=== PATIENT | male | born 1955 | race Caucasian/White ===

== ENCOUNTER 2020-01-30 10:19 | Inpatient (IN) | payer BC ==
--- NOTE | 2020-01-30 10:46 | ER Document Report ---
ED Medical Screen (RME) - General Stated Complaint: FEVER,WEAKNESS Time Seen by Provider: 01/30/20 10:37 Notes: Patient presents complaining of shortness of breath for the past 2 days with cough. Patient was diagnosed with Covid 2 days ago. Patient denies any fever, nausea vomiting or diarrhea. Patient denies any chronic underlying medical problems. I have greeted and performed a rapid initial assessment of this patient. A comprehensive ED assessment and evaluation of the patient, analysis of test results and completion of the medical decision making process will be conducted by additional ED providers. Physical Exam - Vital signs Vitals: Temp Pulse BP Pulse Ox 99.3 F 112 H 134/65 H 55 L 01/30/20 10:30 01/30/20 10:30 01/30/20 10:30 01/30/20 10:30 - Respiratory Respiratory status: Labored, Tachypnea - Cardiovascular Rhythm: Tachycardia Course - Re-evaluation Re-evalutation: 01/30/20 10:46 Patient to room 8, RT called for BiPAP, Dr. Snider advised of patient status and will evaluate patient shortly - Vital Signs Vital signs: Temp Pulse Resp BP Pulse Ox 99.3 F 112 H 134/65 H 55 L 01/30/20 10:30 01/30/20 10:30 01/30/20 10:30 01/30/20 10:30
--- NOTE | 2020-01-30 10:57 | ER Document Report ---
ED Respiratory Problem - General Stated Complaint: FEVER,WEAKNESS Time Seen by Provider: 01/30/20 10:37 - HPI Notes: Patient is a 65-year-old male with a past medical history of hypertension who presents with shortness of breath. He has had shortness of breath worsening for the past 3 days. He was diagnosed yesterday with Covid. Patient denies any na usea or vomiting. No fevers or chills. No loss of taste or smell. No abdominal pain. No diarrhea. Patient states his breathing became worse today. He was hypoxic in triage and 78% on a nonrebreather mask. BiPAP was ordered immediately. Denies any pain. - Related Data Allergies/Adverse Reactions: cefadroxil [From Duricef] Allergy (Verified 01/30/20 13:42) Past Medical History - General Information source: Patient - Social History Smoking Status: Never Smoker Family History: Reviewed & Not Pertinent Review of Systems - Review of Systems Notes: CONSTITUTIONAL: No fever, fatigue or weight loss. SKIN: No rash. HENT: No congestion, ear pain, or sore throat. CARDIOVASCULAR: No chest pain or edema. RESPIRATORY: Positive for shortness of breath. GASTROINTESTINAL: No abdominal pain, nausea, vomiting, bloody stools or diarrhea. MUSCULOSKELETAL: No joint pain or swelling. NEUROLOGIC: No seizures. No headache, focal weakness or sensory changes. HEMATOLOGIC: No unusual bruising or bleeding. PSYCHIATRIC: No depression or anxiety. Physical Exam - Vital signs Vitals: Temp 98.2 F 01/30/20 10:23 - General In distress: Mild Notes: VITAL SIGNS: Hypoxic, mild tachycardia. GENERAL: No acute distress, non-toxic appearance. HEAD: Normal with no signs of head trauma. EYES: Conjunctiva normal, no discharge. EARS: Hearing grossly intact. NOSE: Normal. NECK: Normal range of motion, no tenderness, supple, no lymphadenopathy, No adenopathy, no JVD. CHEST: Clear breath sounds bilaterally. On Bipap. CARDIAC: Regular rate and rhythm. S1 and S2, without murmurs, gallops, or rubs. VASCULAR: No Edema. ABDOMEN: Normal and soft with no tenderness MUSCULOSKELETAL: Good range of motion of all major joints. Extremities without clubbing, cyanosis or edema. NEUROLOGICAL: Alert and oriented x 3. No focal sensory or strength deficits. Speech normal. Follows commands appropriately. PSYCHIATRIC: Normal Affect, judgement and mood. SKIN: Normal appearance with no rashes or lesions. Course - Re-evaluation Re-evalutation: 01/30/20 11:37 Patient was hypoxic on nonrebreather at 78%. His x-ray is consistent with Covid and he had a positive test yesterday. He is on BiPAP. I ordered him steroids. Patient will need to be admitted to the hospital. D-dimer was elevated. CTA showed Covid pneumonia. Patient was switched to CPAP after ABG resulted. Continues to be doing well. He is in no acute distress. Patient is denying any pain. He had an initially elevated troponin, I believe this is from demand ischemia as a second troponin is decreased and he has denied any chest pain while in the ED. EKG is also unremarkable for acute changes. I discussed with the lead hospitalist for admission and she was in agreement to the admission. I then discussed with the assigned hospitalist, Dr. Gama. He evaluated the patient and stated that he does not feel comfortable admitting him and states he needs to go to the ICU or be transferred as he may need to be intubated. I discussed with the ICU PROOFER who also evaluated the patient. She states that he does not need to go to the ICU and can go to the IMCU with the hospitalist on CPAP. She does not think he needs to be intubated either. The ICU PROOFER and the hospitalist discussed this over the phone. I am still currently awaiting a disposition of who will admit this patient. Continues to be doing well on the CPAP with a pulse ox in the low to mid 90s. 01/30/20 19:18 - Vital Signs Vital signs: Temp Pulse Resp BP Pulse Ox 99.4 F 79 30 H 142/81 H 92 01/31/20 19:40 01/31/20 19:00 01/31/20 15:51 01/31/20 15:51 01/31/20 15:51 - Laboratory Result Diagrams: 01/31/20 05:54 01/31/20 05:54 Laboratory results interpreted by me: 01/30/20 01/30/20 01/30/20 12:59 12:59 12:59 WBC 13.5 H Seg Neuts % (Manual) 88 H Lymphocytes % (Manual) 5 L Abs Neuts (Manual) 12.3 H D-Dimer 3.75 H Carbonic Acid ABG pH ABG pCO2 ABG pO2 ABG HCO3 Sodium 127.7 L Chloride 91 L BUN 42 H Creatinine 1.33 H Est GFR (MDRD) Non-Af 54 L Glucose 146 H Magnesium 2.9 H AST 154 H ALT 144 H 01/30/20 13:15 WBC Seg Neuts % (Manual) Lymphocytes % (Manual) Abs Neuts (Manual) D-Dimer Carbonic Acid 0.98 L ABG pH 7.49 H ABG pCO2 32.7 L ABG pO2 77.1 L ABG HCO3 24.2 H Sodium Chloride BUN Creatinine Est GFR (MDRD) Non-Af Glucose Magnesium AST ALT - Diagnostic Test Radiology reviewed: Image reviewed, Reports reviewed - EKG Interpretation by Me EKG shows normal: Sinus rhythm Rate: Normal When compared to previous EKG there are: Previous EKG unavailable Additional EKG results interpreted by me: 01/30/20 15:22 Sinus rhythm at a rate of 79. No acute ST changes. Significant artifact present. No previous EKG available for comparison. Critical Care Note - Critical Care Note Total time excluding time spent on procedures (mins): 45 Comments: On my evaluation, this patient had a high probability of imminent or life-threat ening deterioration due to acute respiratory failure due to COVID-19, which required my direct attention, intervention, and personal management. I have personally provided 45 minutes of critical care time exclusive of time spent on separately billable procedures. Time includes review of laboratory data, radiology results, discussion with consultants, and monitoring for potential decompensation. Interventions were performed as documented above. Discharge - Discharge Clinical Impression: COVID-19, Acute respiratory failure due to COVID-19 Condition: Serious Disposition: ADMITTED INPATIENT Unit Admitted: [facility]
--- NOTE | 2020-01-30 11:24 | RADIOLOGY REPORT (SQ) ---
EXAM DESCRIPTION: CHEST SINGLE VIEW IMAGES COMPLETED DATE/TIME: 01/30/2020 10:57 am REASON FOR STUDY: sob, covid + COMPARISON: None. EXAM PARAMETERS: NUMBER OF VIEWS: One view. TECHNIQUE: Single frontal radiographic view of the chest acquired. RADIATION DOSE: NA LIMITATIONS: None. FINDINGS: LUNGS AND PLEURA: Diffuse patchy bilateral alveolar and interstitial infiltrates. No pleural effusion. No pneumothorax. MEDIASTINUM AND HILAR STRUCTURES: No masses. Contour normal. HEART AND VASCULAR STRUCTURES: No cardiomegaly BONES: No acute findings. HARDWARE: None in the chest. OTHER: No other significant finding. IMPRESSION: Diffuse patchy bilateral alveolar and interstitial infiltrates TECHNICAL DOCUMENTATION: JOB ID: [id number] 2010 [email or web address]- All Rights Reserved Reading location - IP/workstation name: [email or web address]
[2020-01-30] MEDS ORDERED: DEXAMETHASONE SOD PHOS INJ 10 MG/1 ML VIAL IV ONE (11:31)
[2020-01-30 13:22] LABS: HEMATOCRIT 44.9 % (37.9-51.0); HEMOGLOBIN 15.6 g/dL (13.5-17.0); MEAN CORPUSCULAR HEMOGLOBIN 28.4 pg (27.0-33.4); MEAN CORPUSCULAR HGB CONC 34.7 g/dL (32.0-36.0); MEAN CORPUSCULAR VOLUME 82 fl (80-97); PLATELET COUNT 201 10^3/uL (150-450); RED BLOOD COUNT 5.49 10^6/uL (4.35-5.55); WHITE BLOOD COUNT 13.5 10^3/uL (4.0-10.5)
[2020-01-30 13:33] LABS: ARTERIAL BLOOD BASE EXCESS 1.7 mmol/L; ARTERIAL BLOOD H2CO3 0.98 mmol/L (1.05-1.35); ARTERIAL BLOOD HCO3 24.2 mmol/L (20-24); ARTERIAL BLOOD O2 SATURATION 96.4 % (94-98); ARTERIAL BLOOD PCO2 32.7 mmHg (35-45); ARTERIAL BLOOD PH 7.49 (7.35-7.45); ARTERIAL BLOOD PO2 77.1 mmHg (80-100); ARTERIAL BLOOD TOTAL CO2 25.3 mmol/L (23-27)
[2020-01-30 13:34] LABS: ARTERIAL BLOOD FIO2 100%
[2020-01-30 13:43] LABS: ABSOLUTE LYMPHOCYTES# (MANUAL) 0.8 10^3/uL (0.5-4.7); ABSOLUTE MONOCYTES # (MANUAL) 0.4 10^3/uL (0.1-1.4); BAND NEUTROPHILS % (MANUAL) 3 % (3-5); BASOPHILS % (MANUAL) 0 % (0-2); EOSINOPHILS % (MANUAL) 0 % (0-6); LYMPHOCYTES % (MANUAL) 5 % (13-45); MONOCYTES % (MANUAL) 3 % (3-13); SEGMENTED NEUTROPHILS % (MAN) 88 % (42-78); TOTAL CELLS COUNTED 100
[2020-01-30 13:46] LABS: ANISOCYTOSIS SLIGHT; PLATELET COMMENT ADEQUATE; PLATELET LARGE PRESENT; POLYCHROMASIA SLIGHT; TOXIC VACUOLATION PRESENT
[2020-01-30 13:55] LABS: ALBUMIN 3.8 g/dL (3.5-5.0); ALKALINE PHOSPHATASE 63 U/L (38-126); ANION GAP 10 (5-19); ASPARTATE AMINO TRANSFERASE 154 U/L (17-59); BILIRUBIN,DIRECT 0.4 mg/dL (0.0-0.4); BLOOD UREA NITROGEN 42 mg/dL (7-20); CALCIUM 8.5 mg/dL (8.4-10.2); CARBON DIOXIDE 27 mmol/L (22-30); CHLORIDE 91 mmol/L (98-107); GLUCOSE 146 mg/dL (75-110); POTASSIUM 3.6 mmol/L (3.6-5.0)
[2020-01-30] MEDS ORDERED: NORMAL SALINE 500 ML IV ONE (14:16)
--- NOTE | 2020-01-30 17:16 | PDOC CONSULTATION ---
Consultation Consult Date: 01/30/20 Attending physician:: SIA HOLLINS Provider Consulted: ALEXI GEE Consult reason:: covid History of Present Illness Patient complains of: SOB History of Present Illness: KISHOR LEPE is a 65 year old male has history of hypertension. Patient also is obese. He presents to the emergency room due to acute onset of severe progressive shortness of breath started 2 days ago. He actually was tested positive for COVID-19 2 days ago as well. He complains of fever, cough and severe weakness and severe shortness of breath that has progressed very quickly over the past 2 days. It was reported that he was saturating in the 60 when the EMS arrived. He was in the 70s when he came to the emergency room. He was started BiPAP immediately and then switched to CPAP with 100% FiO2. When I saw him he was tachypneic with a respiratory rate around 27 or 28. He was saturating in the low 90s. When the nurse tried to switch him to nonrebreather oxygen 100% FiO2 he desaturated immediately to the 80s. When I sat him up, he desaturated to the 84%. His ABG shows PO2 of 77 on her percent FiO2. Chest x- ray shows bilateral infiltrate. Past Medical History Cardiac Medical History: Reports: Hypertension Social History Smoking Status: Former Smoker Electronic Cigarette use?: No Family History Parental Family History Reviewed: Yes Children Family History Reviewed: NA Sibling(s) Family History Reviewed.: NA Medication/Allergy Allergies/Adverse Reactions: cefadroxil [From Duricef] Allergy (Verified 01/30/20 13:42) Review of Systems All systems: reviewed and no additional remarkable complaints except as stated Physical Exam Vital Signs: Temp Pulse Resp BP Pulse Ox 99.3 F 112 H 28 H 134/65 H 95 01/30/20 10:30 01/30/20 10:30 01/30/20 13:00 01/30/20 10:30 01/30/20 15:33 Intake & Output 01/29/20 01/30/20 01/31/20 06:59 06:59 06:59 Weight 231 lb General appearance: PRESENT: severe distress Head exam: PRESENT: atraumatic, normocephalic Neck exam: ABSENT: meningismus, tenderness Respiratory exam: PRESENT: accessory muscle use, crackles Cardiovascular exam: PRESENT: RRR GI/Abdominal exam: PRESENT: normal bowel sounds, soft Neurological exam: PRESENT: alert, awake, oriented to person, oriented to place, oriented to time, oriented to situation Psychiatric exam: PRESENT: anxious Results Laboratory Results: 01/30/20 12:59 01/30/20 12:59 01/30/20 01/30/20 01/30/20 12:59 12:59 13:15 WBC 13.5 H RBC 5.49 Hgb 15.6 Hct 44.9 MCV 82 MCH 28.4 MCHC 34.7 RDW 14.0 Plt Count 201 Seg Neutrophils % Not Reportable Carbonic Acid 0.98 L HCO3/H2CO3 Ratio 24:1 ABG pH 7.49 H ABG pCO2 32.7 L ABG pO2 77.1 L ABG HCO3 24.2 H ABG O2 Saturation 96.4 ABG Base Excess 1.7 FiO2 100% Sodium 127.7 L Potassium 3.6 Chloride 91 L Carbon Dioxide 27 Anion Gap 10 BUN 42 H Creatinine 1.33 H Est GFR ( Amer) > 60 Glucose 146 H Calcium 8.5 Magnesium 2.9 H Total Bilirubin 1.0 AST 154 H Alkaline Phosphatase 63 Total Protein 7.0 Albumin 3.8 01/30/20 01/30/20 12:59 15:43 Troponin I 0.070 0.046 Impressions: Chest X-Ray 01/30/20 10:39 IMPRESSION: Diffuse patchy bilateral alveolar and interstitial infiltrates Assessment and Plan - Plan Summary Summary: Patient is critically ill. He ends in severe hypoxemic respiratory failure. Is not far from intubation. He was sent for CT angiogram to rule out PE considering his high D-dimer. Recommendation is that the patient gets admitted to the ICU for close observation and possible intubation. He should be started on antiviral remdesivir and dexamethasone for COVID-19 pneumonia and respiratory failure. Discussed with ER physician. 35 minutes of critical care time spent. - Time Anticipated Discharge Disposition: Home, Self Care Anticipated Discharge Timeframe: within 72 hours
--- NOTE | 2020-01-30 17:22 | RADIOLOGY REPORT (SQ) ---
EXAM DESCRIPTION: CTA CHEST IMAGES COMPLETED DATE/TIME: 01/30/2020 5:01 pm REASON FOR STUDY: elevated dimer, covid positive COMPARISON: None. TECHNIQUE: CT scan of the chest performed using helical scanning technique with dynamic intravenous contrast injection. Images reviewed with lung, soft tissue and bone windows. Reconstructed coronal and sagittal MPR images reviewed. Additional 3 dimensional post-processing performed to develop Maximal Intensity Projection images (WA P). All images stored on PACS. All CT scanners at this facility use dose modulation, iterative reconstruction, and/or weight based d osing when appropriate to reduce radiation dose to as low as reasonably achievable (ALARA). [facility]: Dose Right [facility]: CareDose [facility]: Dose Right [facility]: Teradose 4D [facility]: Wine Ring CONTRAST TYPE AND DOSE: contrast/concentration: Isovue 350.00 mmol/ml; Total Contrast Delivered: 75. 0 ml; Total Saline Delivered: 68.9 ml Contrast bolus adequate for pulmonary arteries and aorta. RENAL FUNCTION: Creatinine 1.33 RADIATION DOSE: CT Rad equipment meets quality standard of care and radiation dose reduction techniq ues were employed. CTDIvol: 19.8 - 28.1 mGy. DLP: 1022 mGy-cm. . LIMITATIONS: None. FINDINGS: LUNGS AND PLEURA: Diffuse ground-glass opacities throughout both lungs. No sparing of the periphery. More dense opacity at the left base. AORTA AND GREAT VESSELS: No aneurysm. Contrast bolus not optimized for the aorta. HEART: No pericardial effusion. No significant coronary artery calcifications. PULMONARY ARTERIES: No emboli visualized in the main pulmonary arteries or the segmental branches. HILAR AND MEDIASTINAL STRUCTURES: No identified masses or abnormal nodes. HARDWARE: None in the chest. UPPER ABDOMEN: Marked fatty liver. THYROID AND OTHER SOFT TISSUES: No masses. No adenopathy. BONES: No acute or significant finding. 3D MIPS: Confirm above findings. OTHER: No other significant finding. IMPRESSION: Diffuse ground-glass opacities throughout the lungs consistent with the diagnosis of cov id 19. No pulmonary emboli. Marked fatty infiltration of the liver. COMMENT: Quality ID # [id number]: Final reports with documentation of one or more dose reduction techniques (e.g., Automated exposure control, adjustment of the mA and/or kV according to patient size, use of iterative reconstruction technique) TECHNICAL DOCUMENTATION: JOB ID: [id number] [employer]- All Rights Reserved Reading location - IP/workstation name: [email or web address]
[2020-01-30] MEDS ORDERED: ONDANSETRON HCL INJ/PF 4 MG/2 ML SDV IV PRN (20:08)
[2020-01-30] MEDS ORDERED: ACETAMINOPHEN 325 MG TABLET PO PRN (20:08)
--- NOTE | 2020-01-30 21:29 | PDOC H&P ---
History of Present Illness Patient complains of: Shortness of breath History of Present Illness: KISHOR LEPE is a 65 year old male with a medical history significant for hypertension and class II obesity who tested positive for COVID-19 one day ago now presents to the ED with acute onset shortness of breath which started this morning. Patient states that he started having fever, chills, generalized body aches and a dry cough about 5 days back and relatively he was doing well until this morning where his shortness of breath got really worse. During transfer via EMS he was oxygen saturation was reportedly in the 60s. Immediately after arrival to the emergency department patient was placed on CPAP. During earlier evaluation by hospitalist team patient was desaturating when he was switched to a nonrebreather and he was placed back on CPAP. ABG showed pH/PCO2/PO2 of 7.4 on 100% FiO2. During my evaluation patient was l on CPAP at a setting of 100% FiO2, PEEP of 12, respiratory rate was 24/min, saturating 95%. Denies any chest pain, palpitation, nausea, vomiting, diarrhea or dizziness. Past Medical History Cardiac Medical History: Reports: Hypertension Social History Information Source: Patient Lives with: Family Smoking Status: Former Smoker Electronic Cigarette use?: No Hx Recreational Drug Use: No Drugs: None - Advance Directive Resuscitation Status: Full Code Family History Parental Family History Reviewed: Yes Children Family History Reviewed: Yes Sibling(s) Family History Reviewed.: Yes Medication/Allergy Allergies/Adverse Reactions: cefadroxil [From Duricef] Allergy (Verified 01/30/20 13:42) Review of Systems Constitutional: PRESENT: as per HPI, fatigue, fever(s), weakness Eyes: ABSENT: visual disturbances Ears: ABSENT: hearing changes Nose, Mouth, and Throat: ABSENT: as per HPI, headache(s), mouth pain, sore throat Cardiovascular: PRESENT: dyspnea on exertion. ABSENT: chest pain, edema, orthropnea, palpitations Respiratory: PRESENT: as per HPI Gastrointestinal: ABSENT: abdominal pain, constipation, diarrhea, hematemesis, hematochezia, nausea, vomiting Genitourinary: ABSENT: dysuria, hematuria Musculoskeletal: ABSENT: joint swelling Integumentary: ABSENT: rash, wounds Neurological: ABSENT: abnormal gait, abnormal speech, confusion, dizziness, focal weakness Psychiatric: ABSENT: anxiety, depression, homidical ideation, suicidal ideation Endocrine: ABSENT: cold intolerance, heat intolerance, polydipsia, polyuria Hematologic/Lymphatic: ABSENT: easy bleeding, easy bruising Physical Exam Vital Signs: Temp Pulse Resp BP Pulse Ox 98.4 F 112 H 24 H 131/84 H 92 01/30/20 20:16 01/30/20 10:30 01/30/20 20:01 01/30/20 20:01 01/30/20 20:01 Intake & Output 01/29/20 01/30/20 01/31/20 06:59 06:59 06:59 Intake Total 500 Balance 500 Weight 104.78 kg Additional comments: GENERAL APPEARANCE: Alert and oriented x3, in respiratory distress, currently on a CPAP HEENT: Normocephalic and atraumatic. No scleral icterus. Dry oral mucosa NECK: Supple. No lymphadenopathy or tenderness. No carotid bruit. No JVD CHEST: Symmetric. Nontender to palpation. LUNGS: Tachypneic, no accessory respiratory muscle use, has fine bibasilar crackles. HEART: Regular rate and rhythm with normal S1 and S2. No murmurs, gallops, or rubs. ABDOMEN: soft, active bowel sounds, no direct or rebound tenderness. No organomegaly detected. No CVA tenderness EXTREMITIES: No cyanosis, clubbing, or edema. MUSCULOSKELETAL: No deformity, atrophy or swelling noted PSYCHIATRIC: Recent and remote memory is intact. Appropriate mood and affect. SKIN: Warm, dry, and well perfused. No lesions or rashes are noted. NEUROLOGIC: No focal sensory or motor deficits are noted. Results Laboratory Results: 01/30/20 12:59 01/30/20 12:59 01/30/20 01/30/20 01/30/20 12:59 12:59 13:15 WBC 13.5 H RBC 5.49 Hgb 15.6 Hct 44.9 MCV 82 MCH 28.4 MCHC 34.7 RDW 14.0 Plt Count 201 Seg Neutrophils % Not Reportable Carbonic Acid 0.98 L HCO3/H2CO3 Ratio 24:1 ABG pH 7.49 H ABG pCO2 32.7 L ABG pO2 77.1 L ABG HCO3 24.2 H ABG O2 Saturation 96.4 ABG Base Excess 1.7 FiO2 100% Sodium 127.7 L Potassium 3.6 Chloride 91 L Carbon Dioxide 27 Anion Gap 10 BUN 42 H Creatinine 1.33 H Est GFR ( Amer) > 60 Glucose 146 H Calcium 8.5 Magnesium 2.9 H Total Bilirubin 1.0 AST 154 H Alkaline Phosphatase 63 Total Protein 7.0 Albumin 3.8 01/30/20 01/30/20 12:59 15:43 Troponin I 0.070 0.046 Impressions: Chest X-Ray 01/30/20 10:39 IMPRESSION: Diffuse patchy bilateral alveolar and interstitial infiltrates Chest/Abdomen CTA 01/30/20 14:39 IMPRESSION: Diffuse ground-glass opacities throughout the lungs consistent with the diagnosis of covid 19. No pulmonary emboli. Marked fatty infiltration of the liver. Assessment and Plan - Diagnosis (1) Acute respiratory failure due to COVID-19 Is this a current diagnosis for this admission?: Yes Plan: Patient presents with acute onset shortness of breath Has already been diagnosed with COVID-19 Was hypoxic on presentation with oxygen saturation ranging in the 60s and 70s ABG showed pH/PCO2/PO2=> .49/ 32/77 on 100% FiO2 Chest x-ray was significant for diffuse patchy bilateral alveolar and interstitial infiltrates CTA chest showed no PE but diffuse groundglass opacity bilaterally consistent with viral pneumonia Placed on CPAP with FiO2 100% and PEEP of 12, RT to titrate according to need Started on dexamethasone, convalescent plasma, zinc, vitamin D, vitamin C Will start him on remdesivir in the morning when pharmacy reopens Closely monitor respiratory parameters for any deterioration in his status that may warrant intubation (2) Pneumonia due to COVID-19 virus Is this a current diagnosis for this admission?: Yes Plan: Currently admitted with respiratory failure Continue dexamethasone 6 mg IV daily Will start him on remdesivir Ordered convalescent plasma Started on vitamin D, vitamin C, zinc Continue supportive measures Continue managing supplemental oxygen as stated above (3) Acute kidney injury Is this a current diagnosis for this admission?: Yes Plan: BUN/creatinine was 42/1.33, no baseline to compare it with Has been hydrated with 500 mL normal saline at the ED Will continue to hydrate him with LR at 125 mL/h Requested urine sodium and creatinine to calculate FeNa Renally dose medications and avoid nephrotoxic's Continue monitoring renal indicis (4) Hyponatremia Is this a current diagnosis for this admission?: Yes Plan: Serum sodium was 127 on presentation Likely due to volume depletion Requested serum osmolality, urine osmolality and urine sodium Will continue hydrating him with a goal of correction of 4 to 6 mEq per 24 hours (5) Leukocytosis Is this a current diagnosis for this admission?: Yes Plan: Likely due to COVID-19 infection But culture has been drawn at the ED and follow-up with the result Continue management as stated above (6) Elevated d-dimer Is this a current diagnosis for this admission?: Yes Plan: Likely due to COVID-19 infection CTA chest at the ED showed no sign of PE (7) Hypertension Is this a current diagnosis for this admission?: Yes Plan: Currently blood pressure is in acceptable range Low-sodium diet Will continue home medications (8) Obesity (BMI 30-39.9) Is this a current diagnosis for this admission?: Yes Plan: Encourage lifestyle modification including dietary change and regular exercise to attain optimal weight - Plan Summary Summary: Patient is critically ill. He ends in severe hypoxemic respiratory failure. Is not far from intubation. He was sent for CT angiogram to rule out PE considering his high D-dimer. Recommendation is that the patient gets admitted to the ICU for close observation and possible intubation. He should be started on antiviral remdesivir and dexamethasone for COVID-19 pneumonia and respiratory failure. Discussed with ER physician. 35 minutes of critical care time spent. - Time Time Spent with patient: 35 or more minutes Total Critical Time (Minutes): 45 Medications reviewed and adjusted accordingly: Yes Anticipated Discharge Disposition: Home, Self Care Anticipated Discharge Timeframe: within 72 hours - Inpatient Certification Based on my medical assessment, after consideration of the patient's comorbidities, presenting symptoms, or acuity I expect that the services needed warrant INPATIENT care.: Yes I certify that my determination is in accordance with my understanding of Medicare's requirements for reasonable and necessary INPATIENT services [42 CFR 412.3e].: Yes Medical Necessity: Failure to Improve With Outpatient Therapy, Need Close Monitoring Due to Risk of Patient Decompensation, Risk of Complication if Not Cared For in Hospital Post Hospital Care: D/C or Transfer Summary
[2020-01-30] MEDS: RINGERS SOLUTION,LACTATED 1,000 ML IV PRN (21:45)
[2020-01-30] MEDS: FAMOTIDINE 20 MG TABLET PO SCH (21:45)
--- NOTE | 2020-01-30 23:01 | EKG REPORT ---
SEVERITY:- BORDERLINE ECG - SINUS RHYTHM BORDERLINE PROLONGED QT INTERVAL NONSPECIFIC ST-T CHANGES- INFERIOR LEADS : Confirmed by: Eric Banks MD 30-Jan-2020 23:00:59
[2020-01-30 23:36] LABS: URINE CREATININE 161.9 mg/dL (22-328)
[2020-01-30 23:42] LABS: URINE SODIUM < 5 mmol/L (30-90)
[2020-01-30 23:44] LABS: OSMOLALITY,URINE 928 mOsm/kg (300-900)
--- NOTE | 2020-01-31 02:37 | Progress Note ---
Provider Note Provider Note: At 5:30 PM, I was called by Dr. Marlow in the ED, stating she had a patient who tested positive for COVID-19 1 day ago presented to the ED with increasing shortness of breath. During transfer via EMS his O2 saturation was reportedly in the 60s. Immediately upon arrival to the emergency department he was placed on CPAP. ABG showed pH 7.4 [address] Marlow stated that the patient was appropriate for the IMCU, and had called Dr. Gama the hospitalist who went to the ED to evaluate Mr. Jett, and stated the patient is not appropriate for IMCU and should be admitted to the ICU and intubated. I went to the ED to evaluate the patient. Upon my arrival he was sitting up in bed on CPAP 100% FiO2 breathing 24 bpm O2 saturations 97%, speaking in full sentences, and hemodynamically stable. I asked Mr. Jett how he was feeling, and he stated "I feel much better". I then spoke with the ED physician and told her he did not require ICU level of care and definitely did not require intubation. I again received a call from the ED physician, stating she had called Dr. Gama, who again refused to admit the patient to IMCU. I then spoke to the hospitalist myself, and explained why the patient did not require ICU level of care. He again stated that he will not be accepting the patient. At [address] Allyn tran went to the ED to evaluate Mr. Jett, at which time the patient remained on CPAP with 100% FiO2, respiratory rate was 24 bpm, saturating 95%. He excepted the patient for admission to the IMCU.
[2020-01-31] MEDS: RINGERS SOLUTION,LACTATED 1,000 ML IV PRN (06:08)
[2020-01-31 06:16] LABS: HEMATOCRIT 46.3 % (37.9-51.0); HEMOGLOBIN 15.4 g/dL (13.5-17.0); MEAN CORPUSCULAR HEMOGLOBIN 27.9 pg (27.0-33.4); MEAN CORPUSCULAR HGB CONC 33.2 g/dL (32.0-36.0); MEAN CORPUSCULAR VOLUME 84 fl (80-97); PLATELET COUNT 162 10^3/uL (150-450); RED BLOOD COUNT 5.51 10^6/uL (4.35-5.55); RED CELL DISTRIBUTION WIDTH 14.2 % (11.5-14.0); WHITE BLOOD COUNT 18.6 10^3/uL (4.0-10.5)
[2020-01-31 06:37] LABS: ALBUMIN 3.4 g/dL (3.5-5.0); ALKALINE PHOSPHATASE 66 U/L (38-126); ANION GAP 11 (5-19); ASPARTATE AMINO TRANSFERASE 148 U/L (17-59); BILIRUBIN,DIRECT 0.5 mg/dL (0.0-0.4); BLOOD UREA NITROGEN 36 mg/dL (7-20); CALCIUM 8.5 mg/dL (8.4-10.2); CARBON DIOXIDE 25 mmol/L (22-30); CHLORIDE 97 mmol/L (98-107); GLUCOSE 113 mg/dL (75-110); POTASSIUM 4.3 mmol/L (3.6-5.0); TOTAL PROTEIN 6.2 g/dL (6.3-8.2)
[2020-01-31 06:41] LABS: ABSOLUTE LYMPHOCYTES# (MANUAL) 0.4 10^3/uL (0.5-4.7); ABSOLUTE MONOCYTES # (MANUAL) 0.4 10^3/uL (0.1-1.4); BASOPHILS % (MANUAL) 0 % (0-2); EOSINOPHILS % (MANUAL) 0 % (0-6); LYMPHOCYTES % (MANUAL) 2 % (13-45); MONOCYTES % (MANUAL) 2 % (3-13); PLATELET COMMENT ADEQUATE; RBC MORPHOLOGY COMMENT NORMO-CYTIC/CHROMIC; SEGMENTED NEUTROPHILS % (MAN) 96 % (42-78); TOTAL CELLS COUNTED 100
[2020-01-31] MEDS ORDERED: IPRATROPIUM/ALBUTEROL 0.5-2.5 MG/3 ML AMPUL NEB PRN (08:22)
[2020-01-31] MEDS ORDERED: LORAZEPAM INJ 2 MG/1 ML VIAL IV PRN (08:27)
[2020-01-31] MEDS ORDERED: MORPHINE SULFATE 10 MG/ML INJ IV PRN (08:27)
[2020-01-31] MEDS ORDERED: GUAIFENESIN SYRP 200 MG/10 ML UDC PO PRN (08:29)
[2020-01-31] MEDS ORDERED: METOPROLOL TARTRATE PF/INJ 5 MG/5 ML SDV IV PRN (08:30)
[2020-01-31] MEDS ORDERED: HYDRALAZINE HCL INJ/PF 20 MG/1 ML SDV IV PRN (08:30)
[2020-01-31] MEDS ORDERED: POLYETHYLENE GLYCOL 3350 POWDER 17 GM/1 PACKET PO PRN (08:31)
[2020-01-31] MEDS ORDERED: AZITHROMYCIN 250 MG TABLET PO ONE (09:00)
[2020-01-31] MEDS: FAMOTIDINE 20 MG TABLET PO SCH ×2 (09:05→21:01)
[2020-01-31] MEDS: GUAIFENESIN 600 MG TABLET.SA PO SCH ×2 (09:05→21:01)
[2020-01-31] MEDS: DOCUSATE SODIUM 100 MG CAPSULE PO SCH (09:06)
[2020-01-31] MEDS: ASCORBIC ACID 500 MG TABLET PO SCH ×2 (09:06→17:18)
[2020-01-31] MEDS: CHOLECALCIFEROL (D3) 1,000 UNIT (25 MCG) TABLET PO SCH (09:07)
[2020-01-31] MEDS: ASPIRIN 81 MG TABLET, ENT COATED PO SCH (09:07)
[2020-01-31] MEDS: ZINC SULFATE 220 MG CAPSULE PO SCH (09:07)
[2020-01-31] MEDS: ENOXAPARIN SODIUM INJ 120 MG/0.8 ML DISP.SYRIN SUBCUT SCH ×2 (09:08→21:01)
[2020-01-31] MEDS ORDERED: DEXAMETHASONE SOD PHOS INJ 10 MG/1 ML VIAL IV SCH (10:00)
[2020-01-31] MEDS ORDERED: ENOXAPARIN SODIUM INJ 40 MG/0.4 ML DISP.SYRIN SUBCUT SCH (10:00)
[2020-01-31] MEDS ORDERED: REMDESIVIR 200 MG in NORMAL SALINE 250 ML IV ONE (11:00)
[2020-01-31] MEDS: IPRATROPIUM/ALBUTEROL 0.5-2.5 MG/3 ML AMPUL NEB SCH ×2 (13:59→20:30)
--- NOTE | 2020-01-31 14:19 | PDOC PROGRESS REPORT ---
Subjective Date:: 01/31/20 Subjective:: As per admitting physician's note KISHOR LEPE is a 65 year old male with a medical history significant for hypertension and class II obesity who tested positive for COVID-19 one day ago now presents to the ED with acute onset shortness of breath which started this morning. Patient states that he started having fever, chills, generalized body aches and a dry cough about 5 days back and relatively he was doing well until this morning where his shortness of breath got really worse. During transfer via EMS he was oxygen saturation was reportedly in the 60s. Immediately after arrival to the emergency department patient was placed on CPAP. During earlier evaluation by hospitalist team patient was desaturating when he was switched to a nonrebreather and he was placed back on CPAP. ABG showed pH/PCO2/PO2 of 7.4 on 100% FiO2. During my evaluation patient was l on CPAP at a setting of 100% FiO2, PEEP of 12, respiratory rate was 24/min, saturating 95%. Denies any chest pain, palpitation, nausea, vomiting, diarrhea or dizziness. 01/31/2020. Saw patient this morning noted to be in moderate respiratory distress, awake and alert and oriented, asking for water, reporting mild improvement of his symptoms compared to yesterday, still on BiPAP, saturating 100% on FiO2 of 100%, low-grade fever, leukocytosis, lymphopenia, elevated D- dimer and inflammatory markers. Patient has tested positive for COVID-19 as outpatient. Chest x-ray CT on admission showed diffuse groundglass opacity throughout the lungs. Reason For Visit: ACUTE HYPOXIC RESPIRATORY FAILURE PNEUMONIA DUE TO Physical Exam Vital Signs: Temp Pulse Resp BP Pulse Ox 99.7 F 100 22 H 152/96 H 91 L 01/31/20 00:43 01/31/20 11:41 01/31/20 14:00 01/31/20 12:41 01/31/20 14:00 Intake & Output 01/30/20 01/31/20 02/01/20 06:59 06:59 06:59 Intake Total 1694 819 Output Total 350 Balance 1344 819 Weight 104.78 kg General appearance: PRESENT: obese, other - Moderate respiratory distress on BiPAP Head exam: PRESENT: atraumatic, normocephalic Neck exam: ABSENT: carotid bruit, JVD, lymphadenopathy, thyromegaly Respiratory exam: PRESENT: accessory muscle use, crackles, symmetrical, tachypnea. ABSENT: rales, rhonchi, wheezes Cardiovascular exam: PRESENT: RRR. ABSENT: diastolic murmur, rubs, systolic murmur GI/Abdominal exam: PRESENT: normal bowel sounds, soft. ABSENT: distended, guarding, mass, organolmegaly, rebound, tenderness Extremities exam: PRESENT: full ROM. ABSENT: calf tenderness, clubbing, pedal edema Neurological exam: PRESENT: alert, awake, oriented to person, oriented to place, oriented to time, oriented to situation, CN II-XII grossly intact. ABSENT: motor sensory deficit Results Laboratory Results: 01/31/20 05:54 01/31/20 05:54 01/30/20 01/30/20 01/30/20 12:59 21:35 21:35 WBC RBC Hgb Hct MCV MCH MCHC RDW Plt Count Seg Neutrophils % Sodium Potassium Chloride Carbon Dioxide Anion Gap BUN Creatinine Est GFR ( Amer) Glucose Serum Osmolality 278 Calcium Ferritin 2110.00 H Total Bilirubin AST Alkaline Phosphatase C-Reactive Protein 249.0 H Total Protein Albumin Urine Osmolality Blood Type A POSITIVE Antibody Screen NEGATIVE 01/30/20 01/31/20 01/31/20 22:47 05:54 05:54 WBC 18.6 H RBC 5.51 Hgb 15.4 Hct 46.3 MCV 84 MCH 27.9 MCHC 33.2 RDW 14.2 H Plt Count 162 Seg Neutrophils % Not Reportable Sodium 132.8 L Potassium 4.3 Chloride 97 L Carbon Dioxide 25 Anion Gap 11 BUN 36 H Creatinine 0.93 Est GFR ( Amer) > 60 Glucose 113 H Serum Osmolality Calcium 8.5 Ferritin Total Bilirubin 1.0 AST 148 H Alkaline Phosphatase 66 C-Reactive Protein Total Protein 6.2 L Albumin 3.4 L Urine Osmolality 928 H Blood Type Antibody Screen 01/30/20 01/30/20 01/30/20 12:59 15:43 21:35 Creatine Kinase 1484 H Troponin I 0.070 0.046 Impressions: Chest X-Ray 01/30/20 10:39 IMPRESSION: Diffuse patchy bilateral alveolar and interstitial infiltrates Chest/Abdomen CTA 01/30/20 14:39 IMPRESSION: Diffuse ground-glass opacities throughout the lungs consistent with the diagnosis of covid 19. No pulmonary emboli. Marked fatty infiltration of the liver. Assessment and Plan - Diagnosis (1) Acute respiratory failure with hypoxia Is this a current diagnosis for this admission?: Yes Plan: Moderate respiratory distress due to COVID-19 infection. CTA chest positive for diffuse groundglass opacity throughout the lungs consistent with diagnosis of COVID-19 infection. Marked elevation of inflammatory markers, D-dimer 3.75, AST 154, ALT 144, creatinine 1.3, LDH 936, CK 1448 ferritin 2110, troponin 0.070, 0.04. Given markedly elevated inflammatory markers CTA finding and hypoxia gnosis may be poor. Admit to IMCU, remdesivir, IV steroids, empiric IV antibiotics, DuoNeb, BiPAP, flutter valve, incentive spirometry, convalescent plasma. Day 1 IV antibiotics. Day 1 IV azithromycin. Day 1 IV remdesivir. Day 1 IV steroids. Pending convalescent plasma transfusion. (2) Acute kidney injury Is this a current diagnosis for this admission?: Yes Plan: Resolved. Appears euvolemic. Creatinine WNL. Electrolytes WNL. Prerenal. Most likely due to low p.o. intake caused by nausea vomiting due to COVID-19 infection. Presented with BUN/creatinine was 42/1.33, no baseline available. Continue cautious volume restriction guided by volume status. Monitor electrolytes and volume status. Replace electrolytes as needed. Avoid nephrotoxic meds. (3) Hypertension Qualifiers: Hypertension type: essential hypertension Qualified Code(s): I10 - Essential (primary) hypertension Is this a current diagnosis for this admission?: Yes Plan: Currently blood pressure is in acceptable range Low-sodium diet Will continue home medications (4) Hyponatremia Is this a current diagnosis for this admission?: Yes Plan: Resolved. Most likely due to COVID-19 infection. Presented with serum sodium was 127 on presentation Serum osmolarity 278, urine osmolality 928, urine sodium less than 5. Monitor volume status and electrolytes, replace as needed. BMP tomorrow. (5) Obesity (BMI 30-39.9) Is this a current diagnosis for this admission?: Yes Plan: BMI 36.2. Encourage lifestyle modification including dietary change and regular exercise to attain optimal weight (6) Pneumonia due to COVID-19 virus Is this a current diagnosis for this admission?: Yes Plan: Plan as per #1. - Plan Summary Summary: Patient is critically ill. He ends in severe hypoxemic respiratory failure. Is not far from intubation. He was sent for CT angiogram to rule out PE considering his high D-dimer. Recommendation is that the patient gets admitted to the ICU for close observation and possible intubation. He should be started on antiviral remdesivir and dexamethasone for COVID-19 pneumonia and respiratory failure. Discussed with ER physician. 35 minutes of critical care time spent. - Time Time Spent with patient: 35 or more minutes Medications reviewed and adjusted accordingly: Yes Anticipated Discharge Disposition: Home, Self Care Anticipated Discharge Timeframe: within 72 hours
--- NOTE | 2020-01-31 14:22 | ADVANCED CARE ---
- Diagnosis (1) Acute respiratory failure with hypoxia Diagnosis Current: Yes (2) Acute kidney injury Diagnosis Current: Yes (3) Hypertension Diagnosis Current: Yes (4) Hyponatremia Diagnosis Current: Yes (5) Obesity (BMI 30-39.9) Diagnosis Current: Yes (6) Pneumonia due to COVID-19 virus Diagnosis Current: Yes Resuscitation Status: Full Code Discussion: Discuss CODE STATUS, patient would like to remain full code. In case he cannot make his medical decision he has designated his to make his medical decisions. Care Planning Goals: We will code full code. Time Spent: 16
[2020-01-31] MEDS: LISINOPRIL 10 MG TABLET PO SCH (16:00)
[2020-02-01 05:52] LABS: ABSOLUTE LYMPHOCYTES (AUTO) 0.9 10^3/uL (0.5-4.7); ABSOLUTE MONOCYTES (AUTO) 0.9 10^3/uL (0.1-1.4); ABSOLUTE NEUT (AUTO) 9.2 10^3/uL (1.7-8.2); BASOPHILS % (AUTO) 0.1 % (0-2); HEMATOCRIT 41.6 % (37.9-51.0); HEMOGLOBIN 14.3 g/dL (13.5-17.0); LYMPHOCYTES % (AUTO) 7.8 % (13-45); MEAN CORPUSCULAR HEMOGLOBIN 28.5 pg (27.0-33.4); MEAN CORPUSCULAR HGB CONC 34.2 g/dL (32.0-36.0); MEAN CORPUSCULAR VOLUME 83 fl (80-97); MONOCYTES % (AUTO) 8.6 % (3-13); PLATELET COUNT 185 10^3/uL (150-450); RED CELL DISTRIBUTION WIDTH 14.3 % (11.5-14.0); SEGMENTED NEUTROPHILS % (AUTO) 83.5 % (42-78); TOTAL CELLS COUNTED % (AUTO) 100 %
[2020-02-01 05:54] LABS: INTERNATIONAL RATION (INR) 1.07; PROTHROMBIN TIME 14.1 SEC (11.4-15.4)
[2020-02-01 05:57] LABS: D-DIMER 2.55 ug/mL (0.00-0.50)
[2020-02-01 05:58] LABS: FIBRINOGEN 626 mg/dL (209-497)
[2020-02-01 06:14] LABS: ALBUMIN 3.1 g/dL (3.5-5.0); ALKALINE PHOSPHATASE 83 U/L (38-126); ANION GAP 6 (5-19); ASPARTATE AMINO TRANSFERASE 172 U/L (17-59); BILIRUBIN,DIRECT 0.3 mg/dL (0.0-0.4); BILIRUBIN,TOTAL 0.8 mg/dL (0.2-1.3); BLOOD UREA NITROGEN 34 mg/dL (7-20); CALCIUM 8.4 mg/dL (8.4-10.2); CARBON DIOXIDE 32 mmol/L (22-30); CHLORIDE 98 mmol/L (98-107); GLUCOSE 104 mg/dL (75-110); POTASSIUM 4.2 mmol/L (3.6-5.0); TOTAL PROTEIN 5.7 g/dL (6.3-8.2)
[2020-02-01 06:27] LABS: C-REACTIVE PROTEIN 168.6 mg/L (<10.0)
[2020-02-01] MEDS: IPRATROPIUM/ALBUTEROL 0.5-2.5 MG/3 ML AMPUL NEB SCH ×3 (08:19→20:28)
[2020-02-01] MEDS: CHOLECALCIFEROL (D3) 1,000 UNIT (25 MCG) TABLET PO SCH (10:02)
[2020-02-01] MEDS: ASPIRIN 81 MG TABLET, ENT COATED PO SCH (10:02)
[2020-02-01] MEDS: ASCORBIC ACID 500 MG TABLET PO SCH ×2 (10:02→17:20)
[2020-02-01] MEDS: DOCUSATE SODIUM 100 MG CAPSULE PO SCH (10:02)
[2020-02-01] MEDS: FAMOTIDINE 20 MG TABLET PO SCH ×2 (10:02→21:14)
[2020-02-01] MEDS: AZITHROMYCIN 250 MG TABLET PO SCH (10:02)
[2020-02-01] MEDS: ZINC SULFATE 220 MG CAPSULE PO SCH (10:02)
[2020-02-01] MEDS: ENOXAPARIN SODIUM INJ 120 MG/0.8 ML DISP.SYRIN SUBCUT SCH ×2 (10:02→21:14)
[2020-02-01] MEDS: LISINOPRIL 10 MG TABLET PO SCH (10:02)
[2020-02-01] MEDS: GUAIFENESIN 600 MG TABLET.SA PO SCH ×2 (10:02→21:14)
[2020-02-01] MEDS: DEXAMETHASONE SOD PHOSPHATE INJ 4 MG/1 ML VIAL IV SCH (10:03)
[2020-02-01] MEDS: REMDESIVIR 100 MG in NORMAL SALINE 250 ML IV SCH (10:22)
--- NOTE | 2020-02-01 11:32 | PDOC PROGRESS REPORT ---
Subjective Date:: 02/01/20 Subjective:: As per admitting physician's note KISHOR LEPE is a 65 year old male with a medical history significant for hypertension and class II obesity who tested positive for COVID-19 one day ago now presents to the ED with acute onset shortness of breath which started this morning. Patient states that he started having fever, chills, generalized body aches and a dry cough about 5 days back and relatively he was doing well until this morning where his shortness of breath got really worse. During transfer via EMS he was oxygen saturation was reportedly in the 60s. Immediately after arrival to the emergency department patient was placed on CPAP. During earlier evaluation by hospitalist team patient was desaturating when he was switched to a nonrebreather and he was placed back on CPAP. ABG showed pH/PCO2/PO2 of 7.4 on 100% FiO2. During my evaluation patient was l on CPAP at a setting of 100% FiO2, PEEP of 12, respiratory rate was 24/min, saturating 95%. Denies any chest pain, palpitation, nausea, vomiting, diarrhea or dizziness. 01/31/2020. Saw patient this morning noted to be in moderate respiratory distress, awake and alert and oriented, asking for water, reporting mild improvement of his symptoms compared to yesterday, still on BiPAP, saturating 100% on FiO2 of 100%, low-grade fever, leukocytosis, lymphopenia, elevated D- dimer and inflammatory markers. Patient has tested positive for COVID-19 as outpatient. Chest x-ray CT on admission showed diffuse groundglass opacity throughout the lungs. 02/01/2020. No acute events overnight. Oxygen demand going down, still on BiPAP at 60 FiO2, saturating WNL, leukocytosis improving, patient reporting mild improvement of his symptoms, denies any fever, chills, nausea, vomiting, diarrhea, constipation or any urinary symptoms. Reason For Visit: ACUTE HYPOXIC RESPIRATORY FAILURE PNEUMONIA DUE TO Physical Exam Vital Signs: Temp Pulse Resp BP Pulse Ox 97.7 F 81 27 H 142/80 H 96 02/01/20 10:00 02/01/20 08:20 02/01/20 08:20 02/01/20 08:19 02/01/20 08:20 Intake & Output 01/31/20 02/01/20 02/02/20 06:59 06:59 06:59 Intake Total 1694 969 Output Total 350 500 Balance 1344 469 Weight 104.78 kg 103.9 kg General appearance: PRESENT: mild distress, obese, well-developed, well- nourished Head exam: PRESENT: atraumatic, normocephalic Neck exam: ABSENT: carotid bruit, JVD, lymphadenopathy, thyromegaly Respiratory exam: PRESENT: crackles, symmetrical, tachypnea. ABSENT: rales, rhonchi, wheezes Cardiovascular exam: PRESENT: RRR. ABSENT: diastolic murmur, rubs, systolic murmur GI/Abdominal exam: PRESENT: normal bowel sounds, soft. ABSENT: distended, guarding, mass, organolmegaly, rebound, tenderness Extremities exam: PRESENT: full ROM. ABSENT: calf tenderness, clubbing, pedal edema Neurological exam: PRESENT: alert, awake, oriented to person, oriented to place, oriented to time, oriented to situation, CN II-XII grossly intact. ABSENT: motor sensory deficit Results Laboratory Results: 02/01/20 05:00 02/01/20 05:00 02/01/20 02/01/20 05:00 05:00 WBC 11.0 H RBC 5.00 Hgb 14.3 Hct 41.6 MCV 83 MCH 28.5 MCHC 34.2 RDW 14.3 H Plt Count 185 Seg Neutrophils % 83.5 H Sodium 136.2 L Potassium 4.2 Chloride 98 Carbon Dioxide 32 H Anion Gap 6 BUN 34 H Creatinine 0.86 Est GFR ( Amer) > 60 Glucose 104 Calcium 8.4 Ferritin 2360.00 H Total Bilirubin 0.8 AST 172 H Alkaline Phosphatase 83 C-Reactive Protein 168.6 H Total Protein 5.7 L Albumin 3.1 L 01/30/20 01/30/20 01/30/20 12:59 15:43 21:35 Creatine Kinase 1484 H Troponin I 0.070 0.046 Impressions: Chest X-Ray 01/30/20 10:39 IMPRESSION: Diffuse patchy bilateral alveolar and interstitial infiltrates Chest/Abdomen CTA 01/30/20 14:39 IMPRESSION: Diffuse ground-glass opacities throughout the lungs consistent with the diagnosis of covid 19. No pulmonary emboli. Marked fatty infiltration of the liver. Assessment and Plan - Diagnosis (1) Acute respiratory failure with hypoxia Is this a current diagnosis for this admission?: Yes Plan: Improving, currently on BiPAP FiO2 of 60% saturating WNL. Presented with moderate respiratory distress due to COVID-19 infection. CTA chest positive for diffuse groundglass opacity throughout the lungs consistent with diagnosis of COVID-19 infection. Marked elevation of inflammatory markers, D-dimer 3.75, AST 154, ALT 144, creatinine 1.3, LDH 936, CK 1448 ferritin 2110, troponin 0.070, 0.04. Given markedly elevated inflammatory markers CTA finding and hypoxia gnosis may be poor. Continue remdesivir, IV steroids, empiric IV antibiotics, DuoNeb, BiPAP, flutter valve, incentive spirometry, convalescent plasma. Day 2 IV antibiotics. Day 2 IV azithromycin. Day 2 IV remdesivir. Day 2 IV steroids. Status post convalescent plasma transfusion. (2) Acute kidney injury Is this a current diagnosis for this admission?: Yes Plan: Resolved. Appears euvolemic. Creatinine WNL. Electrolytes WNL. Prerenal. Most likely due to low p.o. intake caused by nausea vomiting due to COVID-19 infection. Presented with BUN/creatinine was 42/1.33, no baseline available. Continue cautious volume restriction guided by volume status. Monitor electrolytes and volume status. Replace electrolytes as needed. Avoid nephrotoxic meds. (3) Hypertension Qualifiers: Hypertension type: essential hypertension Qualified Code(s): I10 - Essential (primary) hypertension Is this a current diagnosis for this admission?: Yes Plan: Currently blood pressure is in acceptable range Low-sodium diet Will continue home medications (4) Hyponatremia Is this a current diagnosis for this admission?: Yes Plan: Resolved. Most likely due to COVID-19 infection. Presented with serum sodium was 127 on presentation Serum osmolarity 278, urine osmolality 928, urine sodium less than 5. Monitor volume status and electrolytes, replace as needed. BMP tomorrow. (5) Obesity (BMI 30-39.9) Is this a current diagnosis for this admission?: Yes Plan: BMI 36.2. Encourage lifestyle modification including dietary change and regular exercise to attain optimal weight (6) Pneumonia due to COVID-19 virus Is this a current diagnosis for this admission?: Yes Plan: Plan as per #1. - Plan Summary Summary: Patient is critically ill. He ends in severe hypoxemic respiratory failure. Is not far from intubation. He was sent for CT angiogram to rule out PE considering his high D-dimer. Recommendation is that the patient gets admitted to the ICU for close observation and possible intubation. He should be started on antiviral remdesivir and dexamethasone for COVID-19 pneumonia and respiratory failure. Discussed with ER physician. 35 minutes of critical care time spent. - Time Time Spent with patient: 25-34 minutes Anticipated Discharge Disposition: Home, Self Care Anticipated Discharge Timeframe: within 72 hours
[2020-02-02 06:16] LABS: ABSOLUTE EOSINOPHILS # (AUTO) 0.1 10^3/uL (0.0-0.6); ABSOLUTE LYMPHOCYTES (AUTO) 1.1 10^3/uL (0.5-4.7); ABSOLUTE MONOCYTES (AUTO) 0.8 10^3/uL (0.1-1.4); ABSOLUTE NEUT (AUTO) 9.2 10^3/uL (1.7-8.2); BASOPHILS % (AUTO) 0.2 % (0-2); EOSINOPHILS % (AUTO) 0.4 % (0-6); HEMATOCRIT 45.6 % (37.9-51.0); HEMOGLOBIN 15.5 g/dL (13.5-17.0); LYMPHOCYTES % (AUTO) 9.6 % (13-45); MEAN CORPUSCULAR HEMOGLOBIN 28.6 pg (27.0-33.4); MEAN CORPUSCULAR HGB CONC 34.1 g/dL (32.0-36.0); MEAN CORPUSCULAR VOLUME 84 fl (80-97); MONOCYTES % (AUTO) 7.6 % (3-13); PLATELET COUNT 242 10^3/uL (150-450); RED BLOOD COUNT 5.44 10^6/uL (4.35-5.55); RED CELL DISTRIBUTION WIDTH 14.4 % (11.5-14.0); SEGMENTED NEUTROPHILS % (AUTO) 82.2 % (42-78); TOTAL CELLS COUNTED % (AUTO) 100 %; WHITE BLOOD COUNT 11.1 10^3/uL (4.0-10.5)
[2020-02-02 06:38] LABS: ALBUMIN 3.2 g/dL (3.5-5.0); ALKALINE PHOSPHATASE 96 U/L (38-126); ANION GAP 9 (5-19); ASPARTATE AMINO TRANSFERASE 147 U/L (17-59); BILIRUBIN,DIRECT 0.4 mg/dL (0.0-0.4); BILIRUBIN,TOTAL 1.1 mg/dL (0.2-1.3); BLOOD UREA NITROGEN 32 mg/dL (7-20); C-REACTIVE PROTEIN 79.8 mg/L (<10.0); CALCIUM 8.6 mg/dL (8.4-10.2); CARBON DIOXIDE 29 mmol/L (22-30); CHLORIDE 102 mmol/L (98-107); GLUCOSE 90 mg/dL (75-110); POTASSIUM 4.5 mmol/L (3.6-5.0)
[2020-02-02] MEDS: IPRATROPIUM/ALBUTEROL 0.5-2.5 MG/3 ML AMPUL NEB SCH ×3 (07:52→20:23)
--- NOTE | 2020-02-02 09:53 | PDOC PROGRESS REPORT ---
Subjective Date:: 02/02/20 Subjective:: As per admitting physician's note KISHOR LEPE is a 65 year old male with a medical history significant for hypertension and class II obesity who tested positive for COVID-19 one day ago now presents to the ED with acute onset shortness of breath which started this morning. Patient states that he started having fever, chills, generalized body aches and a dry cough about 5 days back and relatively he was doing well until this morning where his shortness of breath got really worse. During transfer via EMS he was oxygen saturation was reportedly in the 60s. Immediately after arrival to the emergency department patient was placed on CPAP. During earlier evaluation by hospitalist team patient was desaturating when he was switched to a nonrebreather and he was placed back on CPAP. ABG showed pH/PCO2/PO2 of 7.4 on 100% FiO2. During my evaluation patient was l on CPAP at a setting of 100% FiO2, PEEP of 12, respiratory rate was 24/min, saturating 95%. Denies any chest pain, palpitation, nausea, vomiting, diarrhea or dizziness. 01/31/2020. Saw patient this morning noted to be in moderate respiratory distress, awake and alert and oriented, asking for water, reporting mild improvement of his symptoms compared to yesterday, still on BiPAP, saturating 100% on FiO2 of 100%, low-grade fever, leukocytosis, lymphopenia, elevated D- dimer and inflammatory markers. Patient has tested positive for COVID-19 as outpatient. Chest x-ray CT on admission showed diffuse groundglass opacity throughout the lungs. 02/01/2020. No acute events overnight. Oxygen demand going down, still on BiPAP at 60 FiO2, saturating WNL, leukocytosis improving, patient reporting mild improvement of his symptoms, denies any fever, chills, nausea, vomiting, diarrhea, constipation or any urinary symptoms. 02/02/2020. No acute events overnight. Noted to be in mild respiratory stress, wearing BiPAP, alert and oriented, answering question appropriately, denies any fever, chills, nausea, vomiting. Oxygen demand is dropping, currently on BiPAP FiO2 of 50% saturating WNL. Reason For Visit: ACUTE HYPOXIC RESPIRATORY FAILURE PNEUMONIA DUE TO Physical Exam Vital Signs: Temp Pulse Resp BP Pulse Ox 97.8 F 95 34 H 137/74 H 95 02/02/20 07:40 02/02/20 07:52 02/02/20 09:19 02/02/20 03:54 02/02/20 09:19 Intake & Output 02/01/20 02/02/20 02/03/20 06:59 06:59 06:59 Intake Total 969 250 Output Total 500 875 Balance 469 -625 Weight 103.9 kg 101.1 kg General appearance: PRESENT: mild distress, obese, well-developed, well- nourished Head exam: PRESENT: atraumatic, normocephalic Neck exam: ABSENT: carotid bruit, JVD, lymphadenopathy, thyromegaly Respiratory exam: PRESENT: accessory muscle use, crackles - Bibasilar. ABSENT: rales, rhonchi, wheezes Cardiovascular exam: PRESENT: RRR. ABSENT: diastolic murmur, rubs, systolic murmur GI/Abdominal exam: PRESENT: normal bowel sounds, soft. ABSENT: distended, guarding, mass, organolmegaly, rebound, tenderness Extremities exam: PRESENT: full ROM. ABSENT: calf tenderness, clubbing, pedal edema Neurological exam: PRESENT: alert, awake, oriented to person, oriented to place, oriented to time, oriented to situation, CN II-XII grossly intact. ABSENT: motor sensory deficit Results Laboratory Results: 02/02/20 05:20 02/02/20 05:20 02/02/20 02/02/20 05:20 05:20 WBC 11.1 H RBC 5.44 Hgb 15.5 Hct 45.6 MCV 84 MCH 28.6 MCHC 34.1 RDW 14.4 H Plt Count 242 Seg Neutrophils % 82.2 H Sodium 140.4 Potassium 4.5 Chloride 102 Carbon Dioxide 29 Anion Gap 9 BUN 32 H Creatinine 0.85 Est GFR ( Amer) > 60 Glucose 90 Calcium 8.6 Magnesium 2.9 H Ferritin 1900.00 H Total Bilirubin 1.1 AST 147 H Alkaline Phosphatase 96 C-Reactive Protein 79.8 H Total Protein 6.0 L Albumin 3.2 L 01/30/20 01/30/20 01/30/20 12:59 15:43 21:35 Creatine Kinase 1484 H Troponin I 0.070 0.046 Impressions: Chest X-Ray 01/30/20 10:39 IMPRESSION: Diffuse patchy bilateral alveolar and interstitial infiltrates Chest/Abdomen CTA 01/30/20 14:39 IMPRESSION: Diffuse ground-glass opacities throughout the lungs consistent with the diagnosis of covid 19. No pulmonary emboli. Marked fatty infiltration of the liver. Assessment and Plan - Diagnosis (1) Acute respiratory failure with hypoxia Is this a current diagnosis for this admission?: Yes Plan: Improving, currently on BiPAP FiO2 of 50% saturating WNL. Presented with moderate respiratory distress due to COVID-19 infection. CTA chest positive for diffuse groundglass opacity throughout the lungs consistent with diagnosis of COVID-19 infection. Marked elevation of inflammatory markers, D-dimer 3.75, AST 154, ALT 144, creatinine 1.3, LDH 936, CK 1448 ferritin 2110, troponin 0.070, 0.04. Given markedly elevated inflammatory markers CTA finding and hypoxia gnosis may be poor. Continue remdesivir, IV steroids, empiric IV antibiotics, DuoNeb, BiPAP, flutter valve, incentive spirometry, convalescent plasma. Day 3 IV antibiotics. Day 3 IV azithromycin. Day 3 IV remdesivir. Day 3 IV steroids. Status post convalescent plasma transfusion. (2) Acute kidney injury Is this a current diagnosis for this admission?: Yes Plan: Resolved. Appears euvolemic. Creatinine WNL. Electrolytes WNL. Prerenal. Most likely due to low p.o. intake caused by nausea vomiting due to COVID-19 infection. Presented with BUN/creatinine was 42/1.33, no baseline available. Continue cautious volume restriction guided by volume status. Monitor electrolytes and volume status. Replace electrolytes as needed. Avoid nephrotoxic meds. (3) Hypertension Qualifiers: Hypertension type: essential hypertension Qualified Code(s): I10 - Essential (primary) hypertension Is this a current diagnosis for this admission?: Yes Plan: Currently blood pressure is in acceptable range Low-sodium diet Will continue home medications (4) Hyponatremia Is this a current diagnosis for this admission?: Yes Plan: Resolved. Most likely due to COVID-19 infection. Presented with serum sodium was 127 on presentation Serum osmolarity 278, urine osmolality 928, urine sodium less than 5. Monitor volume status and electrolytes, replace as needed. BMP tomorrow. (5) Obesity (BMI 30-39.9) Is this a current diagnosis for this admission?: Yes Plan: BMI 36.2. Encourage lifestyle modification including dietary change and regular exercise to attain optimal weight (6) Pneumonia due to COVID-19 virus Is this a current diagnosis for this admission?: Yes Plan: Plan as per #1. - Plan Summary Summary: Patient is critically ill. He ends in severe hypoxemic respiratory failure. Is not far from intubation. He was sent for CT angiogram to rule out PE considering his high D-dimer. Recommendation is that the patient gets admitted to the ICU for close observation and possible intubation. He should be started on antiviral remdesivir and dexamethasone for COVID-19 pneumonia and respiratory failure. Discussed with ER physician. 35 minutes of critical care time spent. - Time Time Spent with patient: 25-34 minutes Medications reviewed and adjusted accordingly: Yes Anticipated Discharge Disposition: Home, Self Care Anticipated Discharge Timeframe: within 72 hours
[2020-02-02] MEDS: DOCUSATE SODIUM 100 MG CAPSULE PO SCH (10:37)
[2020-02-02] MEDS: ASPIRIN 81 MG TABLET, ENT COATED PO SCH (10:39)
[2020-02-02] MEDS: AZITHROMYCIN 250 MG TABLET PO SCH (10:39)
[2020-02-02] MEDS: CHOLECALCIFEROL (D3) 1,000 UNIT (25 MCG) TABLET PO SCH (10:39)
[2020-02-02] MEDS: GUAIFENESIN 600 MG TABLET.SA PO SCH ×2 (10:39→21:33)
[2020-02-02] MEDS: ZINC SULFATE 220 MG CAPSULE PO SCH (10:39)
[2020-02-02] MEDS: LISINOPRIL 10 MG TABLET PO SCH (10:39)
[2020-02-02] MEDS: DEXAMETHASONE SOD PHOSPHATE INJ 4 MG/1 ML VIAL IV SCH (10:40)
[2020-02-02] MEDS: REMDESIVIR 100 MG in NORMAL SALINE 250 ML IV SCH (10:40)
[2020-02-02] MEDS: ENOXAPARIN SODIUM INJ 120 MG/0.8 ML DISP.SYRIN SUBCUT SCH ×2 (10:45→21:33)
[2020-02-02] MEDS: ASCORBIC ACID 500 MG TABLET PO SCH ×2 (10:45→17:03)
[2020-02-02] MEDS: FAMOTIDINE 20 MG TABLET PO SCH ×2 (10:45→21:33)
[2020-02-03 05:34] LABS: HEMATOCRIT 47.1 % (37.9-51.0); HEMOGLOBIN 15.8 g/dL (13.5-17.0); MEAN CORPUSCULAR HEMOGLOBIN 28.3 pg (27.0-33.4); MEAN CORPUSCULAR HGB CONC 33.6 g/dL (32.0-36.0); MEAN CORPUSCULAR VOLUME 84 fl (80-97); PLATELET COUNT 280 10^3/uL (150-450); RED BLOOD COUNT 5.59 10^6/uL (4.35-5.55); RED CELL DISTRIBUTION WIDTH 14.6 % (11.5-14.0); WHITE BLOOD COUNT 11.1 10^3/uL (4.0-10.5)
[2020-02-03 05:48] LABS: FIBRINOGEN 603 mg/dL (209-497); INTERNATIONAL RATION (INR) 1.07; PROTHROMBIN TIME 14.1 SEC (11.4-15.4)
[2020-02-03 05:50] LABS: D-DIMER 1.99 ug/mL (0.00-0.50)
[2020-02-03 06:06] LABS: ALBUMIN 3.3 g/dL (3.5-5.0); ALKALINE PHOSPHATASE 105 U/L (38-126); ANION GAP 8 (5-19); ASPARTATE AMINO TRANSFERASE 173 U/L (17-59); BILIRUBIN,DIRECT 0.3 mg/dL (0.0-0.4); BLOOD UREA NITROGEN 27 mg/dL (7-20); C-REACTIVE PROTEIN 74.9 mg/L (<10.0); CALCIUM 8.7 mg/dL (8.4-10.2); CARBON DIOXIDE 28 mmol/L (22-30); CHLORIDE 106 mmol/L (98-107); GLUCOSE 98 mg/dL (75-110); POTASSIUM 4.5 mmol/L (3.6-5.0); TOTAL PROTEIN 6.2 g/dL (6.3-8.2)
[2020-02-03] MEDS ORDERED: CALCIUM GLUCONATE 1000 MG/10 ML INJ IV ONE (08:15)
[2020-02-03] MEDS ORDERED: SODIUM POLYSTYRENE SULFONATE 15 GM/60 ML PO ONE (08:15)
[2020-02-03] MEDS: IPRATROPIUM/ALBUTEROL 0.5-2.5 MG/3 ML AMPUL NEB SCH ×3 (08:46→20:34)
[2020-02-03] MEDS: DEXAMETHASONE SOD PHOSPHATE INJ 4 MG/1 ML VIAL IV SCH (09:19)
[2020-02-03] MEDS: CHOLECALCIFEROL (D3) 1,000 UNIT (25 MCG) TABLET PO SCH (09:20)
[2020-02-03] MEDS: ZINC SULFATE 220 MG CAPSULE PO SCH (09:20)
[2020-02-03] MEDS: ASPIRIN 81 MG TABLET, ENT COATED PO SCH (09:20)
[2020-02-03] MEDS: ASCORBIC ACID 500 MG TABLET PO SCH ×2 (09:20→17:09)
[2020-02-03] MEDS: DOCUSATE SODIUM 100 MG CAPSULE PO SCH (09:20)
[2020-02-03] MEDS: GUAIFENESIN 600 MG TABLET.SA PO SCH ×2 (09:20→21:01)
[2020-02-03] MEDS: LISINOPRIL 10 MG TABLET PO SCH (09:20)
[2020-02-03] MEDS: FAMOTIDINE 20 MG TABLET PO SCH ×2 (09:20→21:01)
[2020-02-03] MEDS: AZITHROMYCIN 250 MG TABLET PO SCH (09:20)
[2020-02-03] MEDS: ENOXAPARIN SODIUM INJ 100 MG/1 ML DISP.SYRIN SUBCUT SCH ×2 (09:21→21:01)
[2020-02-03] MEDS: REMDESIVIR 100 MG in NORMAL SALINE 250 ML IV SCH (10:20)
[2020-02-03] MEDS ORDERED: TEMAZEPAM 15 MG CAPSULE PO PRN (11:03)
--- NOTE | 2020-02-03 12:05 | PDOC PROGRESS REPORT ---
Subjective Date:: 02/03/20 Subjective:: As per admitting physician's note KISHOR LEPE is a 65 year old male with a medical history significant for hypertension and class II obesity who tested positive for COVID-19 one day ago now presents to the ED with acute onset shortness of breath which started this morning. Patient states that he started having fever, chills, generalized body aches and a dry cough about 5 days back and relatively he was doing well until this morning where his shortness of breath got really worse. During transfer via EMS he was oxygen saturation was reportedly in the 60s. Immediately after arrival to the emergency department patient was placed on CPAP. During earlier evaluation by hospitalist team patient was desaturating when he was switched to a nonrebreather and he was placed back on CPAP. ABG showed pH/PCO2/PO2 of 7.4 on 100% FiO2. During my evaluation patient was l on CPAP at a setting of 100% FiO2, PEEP of 12, respiratory rate was 24/min, saturating 95%. Denies any chest pain, palpitation, nausea, vomiting, diarrhea or dizziness. 01/31/2020. Saw patient this morning noted to be in moderate respiratory distress, awake and alert and oriented, asking for water, reporting mild improvement of his symptoms compared to yesterday, still on BiPAP, saturating 100% on FiO2 of 100%, low-grade fever, leukocytosis, lymphopenia, elevated D- dimer and inflammatory markers. Patient has tested positive for COVID-19 as outpatient. Chest x-ray CT on admission showed diffuse groundglass opacity throughout the lungs. 02/01/2020. No acute events overnight. Oxygen demand going down, still on BiPAP at 60 FiO2, saturating WNL, leukocytosis improving, patient reporting mild improvement of his symptoms, denies any fever, chills, nausea, vomiting, diarrhea, constipation or any urinary symptoms. 02/02/2020. No acute events overnight. Noted to be in mild respiratory stress, wearing BiPAP, alert and oriented, answering question appropriately, denies any fever, chills, nausea, vomiting. Oxygen demand is dropping, currently on BiPAP FiO2 of 50% saturating WNL. 02/03/2020. No acute events overnight. No changes compared to yesterday, patient still feels exhausted stating that he could not sleep, oxygen demand is going down mildly, currently on FiO2 50%, 8 L SpO2 WNL. Possible discharge home in 2 or 3 days. Reason For Visit: ACUTE HYPOXIC RESPIRATORY FAILURE PNEUMONIA DUE TO Physical Exam Vital Signs: Temp Pulse Resp BP Pulse Ox 98.3 F 96 18 128/86 H 92 02/03/20 08:15 02/03/20 08:46 02/03/20 08:46 02/03/20 08:15 02/03/20 08:46 Intake & Output 02/02/20 02/03/20 02/04/20 06:59 06:59 06:59 Intake Total 250 740 Output Total 875 450 Balance -625 290 Weight 101.1 kg 99.7 kg General appearance: PRESENT: mild distress, obese, well-developed, well- nourished, other - Appears tired and uncomfortable Head exam: PRESENT: atraumatic, normocephalic Neck exam: ABSENT: carotid bruit, JVD, lymphadenopathy, thyromegaly Respiratory exam: PRESENT: clear to auscultation nohemy. ABSENT: rales, rhonchi, wheezes Cardiovascular exam: PRESENT: RRR. ABSENT: diastolic murmur, rubs, systolic murmur GI/Abdominal exam: PRESENT: normal bowel sounds, soft. ABSENT: distended, guarding, mass, organolmegaly, rebound, tenderness Neurological exam: PRESENT: alert, awake, oriented to person, oriented to place, oriented to time, oriented to situation, CN II-XII grossly intact. ABSENT: motor sensory deficit Results Laboratory Results: 02/03/20 05:07 02/03/20 05:07 02/03/20 02/03/20 05:07 05:07 WBC 11.1 H RBC 5.59 H Hgb 15.8 Hct 47.1 MCV 84 MCH 28.3 MCHC 33.6 RDW 14.6 H Plt Count 280 Sodium 141.6 Potassium 4.5 Chloride 106 Carbon Dioxide 28 Anion Gap 8 BUN 27 H Creatinine 0.82 Est GFR ( Amer) > 60 Glucose 98 Calcium 8.7 Ferritin 1870.00 H Total Bilirubin 1.0 AST 173 H Alkaline Phosphatase 105 C-Reactive Protein 74.9 H Total Protein 6.2 L Albumin 3.3 L 01/30/20 01/30/20 01/30/20 12:59 15:43 21:35 Creatine Kinase 1484 H Troponin I 0.070 0.046 Impressions: Chest X-Ray 01/30/20 10:39 IMPRESSION: Diffuse patchy bilateral alveolar and interstitial infiltrates Chest/Abdomen CTA 01/30/20 14:39 IMPRESSION: Diffuse ground-glass opacities throughout the lungs consistent with the diagnosis of covid 19. No pulmonary emboli. Marked fatty infiltration of the liver. Assessment and Plan - Diagnosis (1) Acute respiratory failure with hypoxia Is this a current diagnosis for this admission?: Yes Plan: Improving, currently on BiPAP FiO2 of 50% saturating WNL. Presented with moderate respiratory distress due to COVID-19 infection. CTA chest positive for diffuse groundglass opacity throughout the lungs consistent with diagnosis of COVID-19 infection. Marked elevation of inflammatory markers, D-dimer 3.75, AST 154, ALT 144, creatinine 1.3, LDH 936, CK 1448 ferritin 2110, troponin 0.070, 0.04. Given markedly elevated inflammatory markers CTA finding and hypoxia gnosis may be poor. Continue remdesivir, IV steroids, empiric IV antibiotics, DuoNeb, BiPAP, flutter valve, incentive spirometry, convalescent plasma. Day 4 IV antibiotics. Day 4 IV azithromycin. Day 4 IV remdesivir. Day 4 IV steroids. Status post convalescent plasma transfusion. (2) Acute kidney injury Is this a current diagnosis for this admission?: Yes Plan: Resolved. Appears euvolemic. Creatinine WNL. Electrolytes WNL. Prerenal. Most likely due to low p.o. intake caused by nausea vomiting due to COVID-19 infection. Presented with BUN/creatinine was 42/1.33, no baseline available. Continue cautious volume restriction guided by volume status. Monitor electrolytes and volume status. Replace electrolytes as needed. Avoid nephrotoxic meds. (3) Hypertension Qualifiers: Hypertension type: essential hypertension Qualified Code(s): I10 - Essential (primary) hypertension Is this a current diagnosis for this admission?: Yes Plan: Currently blood pressure is in acceptable range Low-sodium diet Will continue home medications (4) Hyponatremia Is this a current diagnosis for this admission?: Yes Plan: Resolved. Most likely due to COVID-19 infection. Presented with serum sodium was 127 on presentation Serum osmolarity 278, urine osmolality 928, urine sodium less than 5. Monitor volume status and electrolytes, replace as needed. BMP tomorrow. (5) Obesity (BMI 30-39.9) Is this a current diagnosis for this admission?: Yes Plan: BMI 36.2. Encourage lifestyle modification including dietary change and regular exercise to attain optimal weight (6) Pneumonia due to COVID-19 virus Is this a current diagnosis for this admission?: Yes Plan: Plan as per #1. - Plan Summary Summary: Patient is critically ill. He ends in severe hypoxemic respiratory failure. Is not far from intubation. He was sent for CT angiogram to rule out PE considerin g his high D-dimer. Recommendation is that the patient gets admitted to the ICU for close observation and possible intubation. He should be started on antiviral remdesivir and dexamethasone for COVID-19 pneumonia and respiratory failure. Discussed with ER physician. 35 minutes of critical care time spent. - Time Time Spent with patient: 25-34 minutes Anticipated Discharge Disposition: Home, Self Care Anticipated Discharge Timeframe: within 48 hours
[2020-02-03 12:15] LABS: APPEARANCE,URINE CLEAR; BILIRUBIN,URINE NEGATIVE (NEGATIVE); COLOR,URINE YELLOW; GLUCOSE, URINE NEGATIVE (NEGATIVE); KETONES,URINE NEGATIVE (NEGATIVE); LEUKOCYTE ESTERASE,URINE NEGATIVE (NEGATIVE); NITRITE,URINE NEGATIVE (NEGATIVE); PROTEIN,URINE 30 mg/dL (NEGATIVE); URINE SPECIFIC GRAVITY 1.026
[2020-02-04 06:17] LABS: ABSOLUTE EOSINOPHILS # (AUTO) 0.1 10^3/uL (0.0-0.6); ABSOLUTE LYMPHOCYTES (AUTO) 0.9 10^3/uL (0.5-4.7); ABSOLUTE MONOCYTES (AUTO) 0.5 10^3/uL (0.1-1.4); ABSOLUTE NEUT (AUTO) 9.8 10^3/uL (1.7-8.2); BASOPHILS % (AUTO) 0.2 % (0-2); EOSINOPHILS % (AUTO) 1.1 % (0-6); HEMATOCRIT 45.7 % (37.9-51.0); HEMOGLOBIN 15.1 g/dL (13.5-17.0); LYMPHOCYTES % (AUTO) 8.1 % (13-45); MEAN CORPUSCULAR HEMOGLOBIN 27.8 pg (27.0-33.4); MEAN CORPUSCULAR VOLUME 84 fl (80-97); MONOCYTES % (AUTO) 4.7 % (3-13); PLATELET COUNT 305 10^3/uL (150-450); RED BLOOD COUNT 5.41 10^6/uL (4.35-5.55); RED CELL DISTRIBUTION WIDTH 14.5 % (11.5-14.0); SEGMENTED NEUTROPHILS % (AUTO) 85.9 % (42-78); TOTAL CELLS COUNTED % (AUTO) 100 %; WHITE BLOOD COUNT 11.4 10^3/uL (4.0-10.5)
[2020-02-04 06:47] LABS: ALKALINE PHOSPHATASE 96 U/L (38-126); ANION GAP 8 (5-19); ASPARTATE AMINO TRANSFERASE 141 U/L (17-59); BILIRUBIN,DIRECT 0.2 mg/dL (0.0-0.4); BILIRUBIN,TOTAL 0.9 mg/dL (0.2-1.3); BLOOD UREA NITROGEN 29 mg/dL (7-20); C-REACTIVE PROTEIN 56.5 mg/L (<10.0); CALCIUM 8.5 mg/dL (8.4-10.2); CARBON DIOXIDE 23 mmol/L (22-30); CHLORIDE 108 mmol/L (98-107); GLUCOSE 90 mg/dL (75-110); TOTAL PROTEIN 6.2 g/dL (6.3-8.2)
[2020-02-04] MEDS: IPRATROPIUM/ALBUTEROL 0.5-2.5 MG/3 ML AMPUL NEB SCH ×3 (08:50→20:44)
[2020-02-04] MEDS: ASCORBIC ACID 500 MG TABLET PO SCH ×2 (09:39→17:47)
[2020-02-04] MEDS: GUAIFENESIN 600 MG TABLET.SA PO SCH ×2 (09:39→21:02)
[2020-02-04] MEDS: ENOXAPARIN SODIUM INJ 100 MG/1 ML DISP.SYRIN SUBCUT SCH ×2 (09:39→21:02)
[2020-02-04] MEDS: ZINC SULFATE 220 MG CAPSULE PO SCH (09:39)
[2020-02-04] MEDS: AZITHROMYCIN 250 MG TABLET PO SCH (09:39)
[2020-02-04] MEDS: CHOLECALCIFEROL (D3) 1,000 UNIT (25 MCG) TABLET PO SCH (09:39)
[2020-02-04] MEDS: DOCUSATE SODIUM 100 MG CAPSULE PO SCH (09:39)
[2020-02-04] MEDS: ASPIRIN 81 MG TABLET, ENT COATED PO SCH (09:39)
[2020-02-04] MEDS: LISINOPRIL 10 MG TABLET PO SCH (09:39)
[2020-02-04] MEDS: FAMOTIDINE 20 MG TABLET PO SCH ×2 (09:40→21:02)
[2020-02-04] MEDS: DEXAMETHASONE SOD PHOSPHATE INJ 4 MG/1 ML VIAL IV SCH (09:40)
[2020-02-04] MEDS: REMDESIVIR 100 MG in NORMAL SALINE 250 ML IV SCH (10:42)
--- NOTE | 2020-02-04 19:11 | PDOC PROGRESS REPORT ---
Subjective Date:: 02/04/20 Subjective:: Patient is resting in bed with Oxymizer in place. He is on with SPO2 within normal limits. Without acute events overnight. Reports overall significant improvement. Last bowel movement x2 days ago, feels as though he has to go today. Would like to get cleaned up/shower/bathe, otherwise without acute complaints. No concerns per nursing. Reason For Visit: ACUTE HYPOXIC RESPIRATORY FAILURE PNEUMONIA DUE TO Physical Exam Vital Signs: Temp Pulse Resp BP Pulse Ox 97.5 F 82 20 138/75 H 94 02/04/20 15:32 02/04/20 15:32 02/04/20 15:32 02/04/20 15:32 02/04/20 15:32 Intake & Output 02/03/20 02/04/20 02/05/20 06:59 06:59 06:59 Intake Total 740 970 Output Total 450 1675 Balance 290 -705 Weight 99.7 kg 99.9 kg 99.9 kg General appearance: PRESENT: no acute distress, cooperative, obese Head exam: PRESENT: atraumatic, normocephalic Eye exam: PRESENT: EOMI. ABSENT: scleral icterus Mouth exam: PRESENT: moist, tongue midline Neck exam: PRESENT: full ROM. ABSENT: carotid bruit, JVD, lymphadenopathy Respiratory exam: PRESENT: clear to auscultation nohemy. ABSENT: crackles, rales, rhonchi Cardiovascular exam: PRESENT: RRR. ABSENT: diastolic murmur, systolic murmur Pulses: PRESENT: normal radial pulses GI/Abdominal exam: PRESENT: normal bowel sounds, soft. ABSENT: tenderness Extremities exam: PRESENT: full ROM. ABSENT: pedal edema Musculoskeletal exam: PRESENT: ambulatory, full ROM. ABSENT: deformity, dislocation Neurological exam: PRESENT: alert, awake, oriented to person, oriented to place, oriented to time, oriented to situation, CN II-XII grossly intact Psychiatric exam: PRESENT: appropriate affect, normal mood Skin exam: PRESENT: dry, intact, warm Results Laboratory Results: 02/04/20 05:20 02/04/20 05:20 02/04/20 02/04/20 05:20 05:20 WBC 11.4 H RBC 5.41 Hgb 15.1 Hct 45.7 MCV 84 MCH 27.8 MCHC 33.0 RDW 14.5 H Plt Count 305 Seg Neutrophils % 85.9 H Sodium 139.4 Potassium 5.0 Chloride 108 H Carbon Dioxide 23 Anion Gap 8 BUN 29 H Creatinine 0.86 Est GFR ( Amer) > 60 Glucose 90 Calcium 8.5 Ferritin 1750.00 H Total Bilirubin 0.9 AST 141 H Alkaline Phosphatase 96 C-Reactive Protein 56.5 H Total Protein 6.2 L Albumin 3.0 L 01/30/20 15:00 Blood Blood Culture - Final NO GROWTH IN 5 DAYS 01/30/20 12:59 Blood Blood Culture - Final NO GROWTH IN 5 DAYS 01/30/20 01/30/20 01/30/20 12:59 15:43 21:35 Creatine Kinase 1484 H Troponin I 0.070 0.046 Impressions: Chest X-Ray 01/30/20 10:39 IMPRESSION: Diffuse patchy bilateral alveolar and interstitial infiltrates Chest/Abdomen CTA 01/30/20 14:39 IMPRESSION: Diffuse ground-glass opacities throughout the lungs consistent with the diagnosis of covid 19. No pulmonary emboli. Marked fatty infiltration of the liver. Assessment and Plan - Diagnosis (1) Acute respiratory failure with hypoxia Is this a current diagnosis for this admission?: Yes Plan: Continues to improve. Currently on Oxymizer 15 L with O2 sat 95%. - Presented with moderate respiratory distress due to COVID-19 infection. - CTA chest 01/29 positive for diffuse groundglass opacity throughout the lungs consistent with diagnosis of COVID-19 infection. - Marked elevation of inflammatory markers Therapy thus far includes: - Day 5 IV azithromycin, discontinue tomorrow. - 4 total days IV remdesivir, since discontinued. - 5 days IV steroids, plan to transition to PO and initiate taper off. - Status post convalescent plasma transfusion. - Continue DuoNeb, BiPAP, flutter valve, incentive spirometry. (2) Acute kidney injury Is this a current diagnosis for this admission?: Yes Plan: Resolved. - Appears euvolemic. - Creatinine 0.86. BUN 29. - Prerenal. Most likely due to low p.o. intake caused by nausea vomiting due to COVID-19 infection. - Continue cautious volume restriction guided by volume status. No indication for volume resuscitation at this time - Monitor electrolytes and volume status. - Replace electrolytes as needed. - Avoid nephrotoxic meds. (3) Hypertension Qualifiers: Hypertension type: essential hypertension Qualified Code(s): I10 - Essential (primary) hypertension Is this a current diagnosis for this admission?: Yes Plan: BP 130/70s on home medications - Currently blood pressure is in acceptable range - Will continue home medications (4) Hyponatremia Is this a current diagnosis for this admission?: Yes Plan: Remains Resolved. - Most likely due to COVID-19 infection. - Presented with serum sodium was 127 on presentation - Serum osmolarity 278, urine osmolality 928, urine sodium less than 5. - Monitor volume status and electrolytes, replace as needed. - BMP follow up. (5) Obesity (BMI 30-39.9) Is this a current diagnosis for this admission?: Yes Plan: BMI 36.2. Encourage lifestyle modification including dietary change and regular exercise to attain optimal weight (6) Pneumonia due to COVID-19 virus Is this a current diagnosis for this admission?: Yes Plan: Treatment as above. - Time Time Spent with patient: 25-34 minutes Anticipated Discharge Disposition: Home, Self Care Anticipated Discharge Timeframe: within 48 hours
[2020-02-04] MEDS: LACTULOSE SYRUP 20 GM/30 ML UDCUP PO SCH (21:01)
[2020-02-04] MEDS: POLYETHYLENE GLYCOL 3350 POWDER 17 GM/1 PACKET PO SCH (21:01)
[2020-02-05 05:46] LABS: FIBRINOGEN 541 mg/dL (209-497); INTERNATIONAL RATION (INR) 1.07; PROTHROMBIN TIME 14.1 SEC (11.4-15.4)
[2020-02-05 05:49] LABS: D-DIMER 1.27 ug/mL (0.00-0.50)
[2020-02-05 06:02] LABS: ALKALINE PHOSPHATASE 87 U/L (38-126); ANION GAP 6 (5-19); ASPARTATE AMINO TRANSFERASE 119 U/L (17-59); BILIRUBIN,DIRECT 0.3 mg/dL (0.0-0.4); BILIRUBIN,TOTAL 0.9 mg/dL (0.2-1.3); BLOOD UREA NITROGEN 29 mg/dL (7-20); C-REACTIVE PROTEIN 47.7 mg/L (<10.0); CALCIUM 8.5 mg/dL (8.4-10.2); CARBON DIOXIDE 24 mmol/L (22-30); CHLORIDE 110 mmol/L (98-107); GLUCOSE 98 mg/dL (75-110); POTASSIUM 5.1 mmol/L (3.6-5.0); TOTAL PROTEIN 6.2 g/dL (6.3-8.2)
[2020-02-05 07:58] LABS: ABSOLUTE BASOPHILS # (AUTO) 0.1 10^3/uL (0.0-0.2); ABSOLUTE EOSINOPHILS # (AUTO) 0.2 10^3/uL (0.0-0.6); ABSOLUTE MONOCYTES (AUTO) 0.4 10^3/uL (0.1-1.4); ABSOLUTE NEUT (AUTO) 8.5 10^3/uL (1.7-8.2); BASOPHILS % (AUTO) 0.5 % (0-2); EOSINOPHILS % (AUTO) 1.8 % (0-6); HEMATOCRIT 44.7 % (37.9-51.0); HEMOGLOBIN 15.3 g/dL (13.5-17.0); LYMPHOCYTES % (AUTO) 9.8 % (13-45); MEAN CORPUSCULAR HEMOGLOBIN 28.8 pg (27.0-33.4); MEAN CORPUSCULAR HGB CONC 34.2 g/dL (32.0-36.0); MEAN CORPUSCULAR VOLUME 84 fl (80-97); PLATELET COUNT 303 10^3/uL (150-450); RED CELL DISTRIBUTION WIDTH 14.6 % (11.5-14.0); SEGMENTED NEUTROPHILS % (AUTO) 83.9 % (42-78); TOTAL CELLS COUNTED % (AUTO) 100 %; WHITE BLOOD COUNT 10.2 10^3/uL (4.0-10.5)
[2020-02-05] MEDS: IPRATROPIUM/ALBUTEROL 0.5-2.5 MG/3 ML AMPUL NEB SCH ×3 (08:46→20:46)
[2020-02-05] MEDS: ZINC SULFATE 220 MG CAPSULE PO SCH (10:06)
[2020-02-05] MEDS: CHOLECALCIFEROL (D3) 1,000 UNIT (25 MCG) TABLET PO SCH (10:06)
[2020-02-05] MEDS: ENOXAPARIN SODIUM INJ 100 MG/1 ML DISP.SYRIN SUBCUT SCH ×2 (10:06→21:07)
[2020-02-05] MEDS: GUAIFENESIN 600 MG TABLET.SA PO SCH ×2 (10:06→21:07)
[2020-02-05] MEDS: ASPIRIN 81 MG TABLET, ENT COATED PO SCH (10:06)
[2020-02-05] MEDS: LISINOPRIL 10 MG TABLET PO SCH (10:06)
[2020-02-05] MEDS: ASCORBIC ACID 500 MG TABLET PO SCH ×2 (10:06→17:11)
[2020-02-05] MEDS: FAMOTIDINE 20 MG TABLET PO SCH ×2 (10:06→21:07)
[2020-02-05] MEDS: DEXAMETHASONE SOD PHOSPHATE INJ 4 MG/1 ML VIAL IV SCH (10:07)
[2020-02-05] MEDS: POLYETHYLENE GLYCOL 3350 POWDER 17 GM/1 PACKET PO SCH ×2 (10:07→17:08)
[2020-02-05] MEDS: LACTULOSE SYRUP 20 GM/30 ML UDCUP PO SCH ×2 (10:07→17:08)
[2020-02-05] MEDS ORDERED: SODIUM POLYSTYRENE SULFONATE 15 GM/60 ML PO ONE (12:30)
--- NOTE | 2020-02-05 13:56 | PDOC PROGRESS REPORT ---
Subjective Date:: 02/05/20 Subjective:: Patient sitting upright in bed Oxymixer in place. O2 sats WNL. Plan to gradually wean O2 as comfortable, discussed with patient, understanding and agreeable. Reports continued improvement overall. Bowel movement just prior to evaluation. No acute complaints or concerns. Contact patient's Cris and provided update. No concerns per nursing, no acute events overnight. Nursing instructed on gradually decreasing O2 supplementation. Reason For Visit: ACUTE HYPOXIC RESPIRATORY FAILURE PNEUMONIA DUE TO Physical Exam Vital Signs: Temp Pulse Resp BP Pulse Ox 98.3 F 98 22 H 121/75 95 02/05/20 11:55 02/05/20 13:39 02/05/20 11:55 02/05/20 11:55 02/05/20 11:55 Intake & Output 02/04/20 02/05/20 02/06/20 06:59 06:59 06:59 Intake Total 970 1167 Output Total 1675 750 Balance -705 417 Weight 99.9 kg 96.9 kg Additional comments: General appearance: PRESENT: no acute distress, cooperative, obese Head exam: PRESENT: atraumatic, normocephalic Eye exam: PRESENT: EOMI. ABSENT: scleral icterus Mouth exam: PRESENT: moist, tongue midline Neck exam: PRESENT: full ROM. ABSENT: carotid bruit, JVD, lymphadenopathy Respiratory exam: PRESENT: clear to auscultation nohemy. ABSENT: crackles, rales, rhonchi Cardiovascular exam: PRESENT: RRR. ABSENT: diastolic murmur, systolic murmur Pulses: PRESENT: normal radial pulses GI/Abdominal exam: PRESENT: normal bowel sounds, soft. ABSENT: tenderness Extremities exam: PRESENT: full ROM. ABSENT: pedal edema Musculoskeletal exam: PRESENT: ambulatory, full ROM. ABSENT: deformity, dislocation Neurological exam: PRESENT: alert, awake, oriented to person, oriented to place, oriented to time, oriented to situation, CN II-XII grossly intact Psychiatric exam: PRESENT: appropriate affect, normal mood Skin exam: PRESENT: dry, intact, warm Results Laboratory Results: 02/05/20 07:37 02/05/20 05:07 02/05/20 02/05/20 02/05/20 05:07 05:07 07:37 WBC Cancelled 10.2 RBC Cancelled 5.30 Hgb Cancelled 15.3 Hct Cancelled 44.7 MCV Cancelled 84 MCH Cancelled 28.8 MCHC Cancelled 34.2 RDW Cancelled 14.6 H Plt Count Cancelled 303 Seg Neutrophils % Cancelled 83.9 H Sodium 140.2 Potassium 5.1 H Chloride 110 H Carbon Dioxide 24 Anion Gap 6 BUN 29 H Creatinine 0.72 Est GFR ( Amer) > 60 Glucose 98 Calcium 8.5 Ferritin 1690.00 H Total Bilirubin 0.9 AST 119 H Alkaline Phosphatase 87 C-Reactive Protein 47.7 H Total Protein 6.2 L Albumin 3.0 L 01/30/20 15:00 Blood Blood Culture - Final NO GROWTH IN 5 DAYS 01/30/20 12:59 Blood Blood Culture - Final NO GROWTH IN 5 DAYS 01/30/20 01/30/20 01/30/20 12:59 15:43 21:35 Creatine Kinase 1484 H Troponin I 0.070 0.046 Impressions: Chest X-Ray 01/30/20 10:39 IMPRESSION: Diffuse patchy bilateral alveolar and interstitial infiltrates Chest/Abdomen CTA 01/30/20 14:39 IMPRESSION: Diffuse ground-glass opacities throughout the lungs consistent with the diagnosis of covid 19. No pulmonary emboli. Marked fatty infiltration of the liver. Assessment and Plan - Diagnosis (1) Acute respiratory failure with hypoxia Is this a current diagnosis for this admission?: Yes Plan: Continues to improve. Currently on Oxymizer 15 L with O2 sat 95%. - Presented with moderate respiratory distress due to COVID-19 infection. - CTA chest 01/29 positive for diffuse groundglass opacity throughout the lungs consistent with diagnosis of COVID-19 infection. - Marked elevation inflammatory markers on initial presentation with progressive decrease with treatment thus far. Therapy thus far includes: - Completed 5 days Azithromycin in full, last dose today. - 4 total days IV remdesivir, since discontinued. - 5 days IV steroids, continue IV steroid until discharge. - Status post convalescent plasma transfusion. - Continue DuoNeb, BiPAP, flutter valve, incentive spirometry. (2) Acute kidney injury Is this a current diagnosis for this admission?: Yes Plan: Resolved. - Continues to be euvolemic. - Creatinine 0.72. BUN 29. - Prerenal. Most likely due to low p.o. intake caused by nausea vomiting due to COVID-19 infection. - Continue cautious volume restriction guided by volume status. No indication for volume resuscitation at this time - Monitor electrolytes and volume status. - Replace electrolytes as needed. - Avoid nephrotoxic meds. (3) Hypertension Qualifiers: Hypertension type: essential hypertension Qualified Code(s): I10 - Essential (primary) hypertension Is this a current diagnosis for this admission?: Yes Plan: BP 130/70s on home medications - Currently blood pressure is in acceptable range - Will continue home medications (4) Hyponatremia Is this a current diagnosis for this admission?: Yes Plan: Remains Resolved. - Most likely due to COVID-19 infection. - Presented with serum sodium was 127 on presentation - Serum osmolarity 278, urine osmolality 928, urine sodium less than 5. - Monitor volume status and electrolytes, replace as needed. - BMP follow up. (5) Obesity (BMI 30-39.9) Is this a current diagnosis for this admission?: Yes Plan: BMI 36.2. Encourage lifestyle modification including dietary change and regular exercise to attain optimal weight (6) Pneumonia due to COVID-19 virus Is this a current diagnosis for this admission?: Yes Plan: Covid positive as of 01/29/2020, test completed in outpatient setting. Treatment as above. (7) Hyperkalemia Is this a current diagnosis for this admission?: Yes Plan: Potassium with gradual increase since admission, 5.1 today. - Pt without bowel movement for several days - Initiated bowel regimen with lactulose and miralax - Bowel movement today - Initiate Kayexalate - Monitor BMP - Plan Summary Summary: Ready to dc home once weaned off O2 therapy. - Time Time Spent with patient: 25-34 minutes Medications reviewed and adjusted accordingly: Yes Anticipated Discharge Disposition: Home, Self Care Anticipated Discharge Timeframe: within 48 hours
[2020-02-05 18:33] LABS: APPEARANCE,URINE CLEAR; BILIRUBIN,URINE NEGATIVE (NEGATIVE); COLOR,URINE YELLOW; GLUCOSE, URINE NEGATIVE (NEGATIVE); KETONES,URINE TRACE mg/dL (NEGATIVE); LEUKOCYTE ESTERASE,URINE NEGATIVE (NEGATIVE); NITRITE,URINE NEGATIVE (NEGATIVE); PROTEIN,URINE NEGATIVE (NEGATIVE); URINE SPECIFIC GRAVITY 1.028
[2020-02-06 05:26] LABS: ABSOLUTE EOSINOPHILS # (AUTO) 0.2 10^3/uL (0.0-0.6); ABSOLUTE LYMPHOCYTES (AUTO) 1.3 10^3/uL (0.5-4.7); ABSOLUTE MONOCYTES (AUTO) 0.4 10^3/uL (0.1-1.4); ABSOLUTE NEUT (AUTO) 6.7 10^3/uL (1.7-8.2); BASOPHILS % (AUTO) 0.5 % (0-2); EOSINOPHILS % (AUTO) 1.9 % (0-6); HEMATOCRIT 44.2 % (37.9-51.0); HEMOGLOBIN 14.9 g/dL (13.5-17.0); LYMPHOCYTES % (AUTO) 15.3 % (13-45); MEAN CORPUSCULAR HEMOGLOBIN 28.5 pg (27.0-33.4); MEAN CORPUSCULAR HGB CONC 33.7 g/dL (32.0-36.0); MEAN CORPUSCULAR VOLUME 85 fl (80-97); MONOCYTES % (AUTO) 4.4 % (3-13); PLATELET COUNT 294 10^3/uL (150-450); RED BLOOD COUNT 5.22 10^6/uL (4.35-5.55); RED CELL DISTRIBUTION WIDTH 14.5 % (11.5-14.0); SEGMENTED NEUTROPHILS % (AUTO) 77.9 % (42-78); TOTAL CELLS COUNTED % (AUTO) 100 %; WHITE BLOOD COUNT 8.6 10^3/uL (4.0-10.5)
[2020-02-06 05:45] LABS: ALBUMIN 2.9 g/dL (3.5-5.0); ALKALINE PHOSPHATASE 103 U/L (38-126); ANION GAP 5 (5-19); ASPARTATE AMINO TRANSFERASE 115 U/L (17-59); BILIRUBIN,DIRECT 0.3 mg/dL (0.0-0.4); BILIRUBIN,TOTAL 0.8 mg/dL (0.2-1.3); BLOOD UREA NITROGEN 26 mg/dL (7-20); C-REACTIVE PROTEIN 36.3 mg/L (<10.0); CALCIUM 8.7 mg/dL (8.4-10.2); CARBON DIOXIDE 28 mmol/L (22-30); CHLORIDE 105 mmol/L (98-107); GLUCOSE 101 mg/dL (75-110); POTASSIUM 4.7 mmol/L (3.6-5.0); TOTAL PROTEIN 6.2 g/dL (6.3-8.2)
[2020-02-06] MEDS: IPRATROPIUM/ALBUTEROL 0.5-2.5 MG/3 ML AMPUL NEB SCH ×3 (08:23→20:19)
[2020-02-06] MEDS: GUAIFENESIN 600 MG TABLET.SA PO SCH ×2 (11:29→21:08)
[2020-02-06] MEDS: FAMOTIDINE 20 MG TABLET PO SCH ×2 (11:29→21:08)
[2020-02-06] MEDS: DEXAMETHASONE SOD PHOSPHATE INJ 4 MG/1 ML VIAL IV SCH (11:29)
[2020-02-06] MEDS: POLYETHYLENE GLYCOL 3350 POWDER 17 GM/1 PACKET PO SCH ×2 (11:29→17:34)
[2020-02-06] MEDS: ASCORBIC ACID 500 MG TABLET PO SCH ×2 (11:29→17:49)
[2020-02-06] MEDS: ZINC SULFATE 220 MG CAPSULE PO SCH (11:30)
[2020-02-06] MEDS: CHOLECALCIFEROL (D3) 1,000 UNIT (25 MCG) TABLET PO SCH (11:30)
[2020-02-06] MEDS: LISINOPRIL 10 MG TABLET PO SCH (11:30)
[2020-02-06] MEDS: LACTULOSE SYRUP 20 GM/30 ML UDCUP PO SCH ×2 (11:30→17:34)
[2020-02-06] MEDS: ASPIRIN 81 MG TABLET, ENT COATED PO SCH (11:30)
[2020-02-06] MEDS: ENOXAPARIN SODIUM INJ 100 MG/1 ML DISP.SYRIN SUBCUT SCH ×2 (11:31→21:09)
--- NOTE | 2020-02-06 16:32 | PDOC PROGRESS REPORT ---
Subjective Date:: 02/06/20 Subjective:: Patient sitting upright in bed with Oxymizer in place at 10L, O2 sats > 95%. Patient reports overall significant improvement in symptoms. He is actually requesting that he no longer use the BiPAP at nighttime agreeing to leave the BiPAP in the room for him to use if needed but I am okay with him remaining on Oxymizer at night. Discussed with nurse she is agreeing and understanding of plan to continue to gradually decreased supplemental O2 as long as permitted by O2 saturation. Patient regular with no complaints or concerns today. No concerns per nursing and no events overnight. Reason For Visit: ACUTE HYPOXIC RESPIRATORY FAILURE PNEUMONIA DUE TO Physical Exam Vital Signs: Temp Pulse Resp BP Pulse Ox 98.3 F 86 21 H 132/79 H 95 02/06/20 15:14 02/06/20 15:14 02/06/20 15:14 02/06/20 15:14 02/06/20 15:14 Intake & Output 02/05/20 02/06/20 02/07/20 06:59 06:59 06:59 Intake Total 1167 1841 497 Output Total 750 1075 375 Balance 417 766 122 Weight 96.9 kg 96.5 kg 96.5 kg Additional comments: General appearance: PRESENT: no acute distress, cooperative, obese Head exam: PRESENT: atraumatic, normocephalic Eye exam: PRESENT: EOMI. ABSENT: scleral icterus Mouth exam: PRESENT: moist, tongue midline Neck exam: PRESENT: full ROM. ABSENT: carotid bruit, JVD, lymphadenopathy Respiratory exam: PRESENT: clear to auscultation nohemy. ABSENT: crackles, rales, rhonchi Cardiovascular exam: PRESENT: RRR. ABSENT: diastolic murmur, systolic murmur Pulses: PRESENT: normal radial pulses GI/Abdominal exam: PRESENT: normal bowel sounds, soft. ABSENT: tenderness Extremities exam: PRESENT: full ROM. ABSENT: pedal edema Musculoskeletal exam: PRESENT: ambulatory, full ROM. ABSENT: deformity, dislocation Neurological exam: PRESENT: alert, awake, oriented to person, oriented to place, oriented to time, oriented to situation, CN II-XII grossly intact Psychiatric exam: PRESENT: appropriate affect, normal mood Skin exam: PRESENT: dry, intact, warm Results Laboratory Results: 02/06/20 04:40 02/06/20 04:40 02/05/20 02/06/20 02/06/20 16:17 04:40 04:40 WBC 8.6 RBC 5.22 Hgb 14.9 Hct 44.2 MCV 85 MCH 28.5 MCHC 33.7 RDW 14.5 H Plt Count 294 Seg Neutrophils % 77.9 Sodium 138.1 Potassium 4.7 Chloride 105 Carbon Dioxide 28 Anion Gap 5 BUN 26 H Creatinine 0.72 Est GFR ( Amer) > 60 Glucose 101 Calcium 8.7 Ferritin 2030.00 H Total Bilirubin 0.8 AST 115 H Alkaline Phosphatase 103 C-Reactive Protein 36.3 H Total Protein 6.2 L Albumin 2.9 L Urine Color YELLOW Urine Appearance CLEAR Urine pH 6.0 Ur Specific [place] 1.028 Urine Protein NEGATIVE Urine Glucose (UA) NEGATIVE Urine Ketones TRACE H Urine Blood NEGATIVE Urine Nitrite NEGATIVE Ur Leukocyte Esterase NEGATIVE Urine WBC (Auto) 1 Urine RBC (Auto) 9 01/30/20 01/30/20 01/30/20 12:59 15:43 21:35 Creatine Kinase 1484 H Troponin I 0.070 0.046 Impressions: Chest X-Ray 01/30/20 10:39 IMPRESSION: Diffuse patchy bilateral alveolar and interstitial infiltrates Chest/Abdomen CTA 01/30/20 14:39 IMPRESSION: Diffuse ground-glass opacities throughout the lungs consistent with the diagnosis of covid 19. No pulmonary emboli. Marked fatty infiltration of the liver. Assessment and Plan - Diagnosis (1) Acute respiratory failure with hypoxia Is this a current diagnosis for this admission?: Yes Plan: Continues to improve. Currently on Oxymizer 10 L with O2 sat 95%. - Presented with moderate respiratory distress due to COVID-19 infection. - CTA chest 01/29 positive for diffuse groundglass opacity throughout the lungs consistent with diagnosis of COVID-19 infection. - Marked elevation inflammatory markers on initial presentation with progressive decrease with treatment thus far. Therapy thus far includes: - Completed 5 days Azithromycin in full, last dose today. - 4 total days IV remdesivir, since discontinued. - 7 days IV steroids, continue IV steroid until discharge. - Status post convalescent plasma transfusion. - Continue DuoNeb, BiPAP, flutter valve, incentive spirometry. (2) Acute kidney injury Is this a current diagnosis for this admission?: Yes Plan: Resolved. - Continues to be euvolemic. - Creatinine 0.72. BUN 26. - Prerenal. Most likely due to low p.o. intake caused by nausea vomiting due to COVID-19 infection. - Continue cautious volume restriction guided by volume status. No indication for volume resuscitation at this time - Monitor electrolytes and volume status. - Replace electrolytes as needed. - Avoid nephrotoxic meds. (3) Hypertension Qualifiers: Hypertension type: essential hypertension Qualified Code(s): I10 - Essential (primary) hypertension Is this a current diagnosis for this admission?: Yes Plan: BP 130/70s on home medications - Currently blood pressure is in acceptable range - Will continue home medications (4) Hyponatremia Is this a current diagnosis for this admission?: Yes Plan: Remains Resolved. - Most likely due to COVID-19 infection. - Presented with serum sodium was 127 on presentation - Serum osmolarity 278, urine osmolality 928, urine sodium less than 5. - Monitor volume status and electrolytes, replace as needed. - BMP follow up. (5) Obesity (BMI 30-39.9) Is this a current diagnosis for this admission?: Yes Plan: BMI 36.2. Encourage lifestyle modification including dietary change and regular exercise to attain optimal weight (6) Pneumonia due to COVID-19 virus Is this a current diagnosis for this admission?: Yes Plan: Covid positive as of 01/29/2020, test completed in outpatient setting. Treatment as above. (7) Hyperkalemia Is this a current diagnosis for this admission?: Yes Plan: Resolved. Potassium 4.7 today - Treated with lactulose, miralax and kayexalate. - Cnt bowel regimen - Cnt to monitor. - Plan Summary Summary: Ready to dc home once weaned off O2 therapy. - Time Time Spent with patient: 15-24 minutes Medications reviewed and adjusted accordingly: Yes Anticipated Discharge Disposition: Home, Self Care Anticipated Discharge Timeframe: na
[2020-02-07 04:37] LABS: HEPATITS B SURFACE ANTIGEN Negative (Negative)
[2020-02-07 04:59] LABS: HEMATOCRIT 44.2 % (37.9-51.0); HEMOGLOBIN 14.9 g/dL (13.5-17.0); MEAN CORPUSCULAR HGB CONC 33.6 g/dL (32.0-36.0); MEAN CORPUSCULAR VOLUME 84 fl (80-97); PLATELET COUNT 299 10^3/uL (150-450); RED CELL DISTRIBUTION WIDTH 14.3 % (11.5-14.0); WHITE BLOOD COUNT 8.9 10^3/uL (4.0-10.5)
[2020-02-07 05:23] LABS: D-DIMER 1.58 ug/mL (0.00-0.50)
[2020-02-07 05:25] LABS: ABSOLUTE LYMPHOCYTES# (MANUAL) 1.4 10^3/uL (0.5-4.7); ABSOLUTE MONOCYTES # (MANUAL) 0.6 10^3/uL (0.1-1.4); BASOPHILS % (MANUAL) 0 % (0-2); EOSINOPHILS % (MANUAL) 3 % (0-6); LYMPHOCYTES % (MANUAL) 16 % (13-45); MONOCYTES % (MANUAL) 7 % (3-13); SEGMENTED NEUTROPHILS % (MAN) 74 % (42-78); TOTAL CELLS COUNTED 100
[2020-02-07 05:26] LABS: PLATELET COMMENT ADEQUATE; RBC MORPHOLOGY COMMENT NORMO-CYTIC/CHROMIC
[2020-02-07 05:32] LABS: ALBUMIN 2.9 g/dL (3.5-5.0); ALKALINE PHOSPHATASE 101 U/L (38-126); ANION GAP 5 (5-19); ASPARTATE AMINO TRANSFERASE 104 U/L (17-59); BILIRUBIN,DIRECT 0.3 mg/dL (0.0-0.4); BILIRUBIN,TOTAL 0.8 mg/dL (0.2-1.3); BLOOD UREA NITROGEN 25 mg/dL (7-20); C-REACTIVE PROTEIN 39.6 mg/L (<10.0); CALCIUM 8.8 mg/dL (8.4-10.2); CARBON DIOXIDE 27 mmol/L (22-30); CHLORIDE 107 mmol/L (98-107); GLUCOSE 99 mg/dL (75-110); POTASSIUM 4.8 mmol/L (3.6-5.0); TOTAL PROTEIN 6.3 g/dL (6.3-8.2)
[2020-02-07 07:04] LABS: HEPATITIS C VIRUS ANTIBODY <0.1 s/co ratio (0.0-0.9)
[2020-02-07] MEDS: IPRATROPIUM/ALBUTEROL 0.5-2.5 MG/3 ML AMPUL NEB SCH ×3 (08:18→19:58)
[2020-02-07 09:00] LABS: APPEARANCE,URINE CLEAR; BILIRUBIN,URINE NEGATIVE (NEGATIVE); COLOR,URINE YELLOW; GLUCOSE, URINE NEGATIVE (NEGATIVE); KETONES,URINE NEGATIVE (NEGATIVE); LEUKOCYTE ESTERASE,URINE NEGATIVE (NEGATIVE); NITRITE,URINE NEGATIVE (NEGATIVE); PROTEIN,URINE NEGATIVE (NEGATIVE); URINE SPECIFIC GRAVITY 1.026; UROBILINOGEN,URINE NEGATIVE mg/dL (<2.0)
[2020-02-07] MEDS: LACTULOSE SYRUP 20 GM/30 ML UDCUP PO SCH ×3 (09:37→17:19)
[2020-02-07] MEDS: DEXAMETHASONE SOD PHOSPHATE INJ 4 MG/1 ML VIAL IV SCH (09:38)
[2020-02-07] MEDS: ASPIRIN 81 MG TABLET, ENT COATED PO SCH (09:38)
[2020-02-07] MEDS: ZINC SULFATE 220 MG CAPSULE PO SCH (09:38)
[2020-02-07] MEDS: ASCORBIC ACID 500 MG TABLET PO SCH ×2 (09:39→17:21)
[2020-02-07] MEDS: LISINOPRIL 10 MG TABLET PO SCH (09:39)
[2020-02-07] MEDS: CHOLECALCIFEROL (D3) 1,000 UNIT (25 MCG) TABLET PO SCH (09:39)
[2020-02-07] MEDS: GUAIFENESIN 600 MG TABLET.SA PO SCH ×2 (09:39→21:16)
[2020-02-07] MEDS: ENOXAPARIN SODIUM INJ 100 MG/1 ML DISP.SYRIN SUBCUT SCH ×2 (09:39→21:16)
[2020-02-07] MEDS: FAMOTIDINE 20 MG TABLET PO SCH ×2 (09:39→21:16)
[2020-02-07] MEDS: POLYETHYLENE GLYCOL 3350 POWDER 17 GM/1 PACKET PO SCH ×2 (09:40→17:20)
--- NOTE | 2020-02-07 14:42 | PDOC PROGRESS REPORT ---
Subjective Date:: 02/07/20 Subjective:: Patient is resting in bed. Reports continued improvement. Oxymizer 6 [address] supplemental oxygen in [address] O2 saturation 90%. Patient denies cough, chest pain, shortness of breath, or palpitations. Is having routine bowel movements. Patient tells me that he is from [place] and he is in town visiting his daughter in the family. No acute events overnight as per nursing. Reason For Visit: ACUTE HYPOXIC RESPIRATORY FAILURE PNEUMONIA DUE TO Physical Exam Vital Signs: Temp Pulse Resp BP Pulse Ox 98.2 F 86 18 119/65 93 02/07/20 11:16 02/07/20 14:09 02/07/20 14:09 02/07/20 11:16 02/07/20 14:09 Intake & Output 02/06/20 02/07/20 02/08/20 06:59 06:59 06:59 Intake Total 1841 1566 Output Total 1075 1850 Balance 766 -284 Weight 96.5 kg 95.5 kg Additional comments: General appearance: PRESENT: no acute distress, cooperative, obese Head exam: PRESENT: atraumatic, normocephalic Eye exam: PRESENT: EOMI. ABSENT: scleral icterus Mouth exam: PRESENT: moist, tongue midline Neck exam: PRESENT: full ROM. ABSENT: carotid bruit, JVD, lymphadenopathy Respiratory exam: PRESENT: clear to auscultation nohemy. ABSENT: crackles, rales, rhonchi Cardiovascular exam: PRESENT: RRR. ABSENT: diastolic murmur, systolic murmur Pulses: PRESENT: normal radial pulses GI/Abdominal exam: PRESENT: normal bowel sounds, soft. ABSENT: tenderness Extremities exam: PRESENT: full ROM. ABSENT: pedal edema Musculoskeletal exam: PRESENT: ambulatory, full ROM. ABSENT: deformity, dislocation Neurological exam: PRESENT: alert, awake, oriented to person, oriented to place, oriented to time, oriented to situation, CN II-XII grossly intact Psychiatric exam: PRESENT: appropriate affect, normal mood Skin exam: PRESENT: dry, intact, warm Results Laboratory Results: 02/07/20 04:45 02/07/20 04:45 02/07/20 02/07/20 02/07/20 04:45 04:45 08:45 WBC 8.9 RBC 5.30 Hgb 14.9 Hct 44.2 MCV 84 MCH 28.0 MCHC 33.6 RDW 14.3 H Plt Count 299 Seg Neutrophils % Not Reportable Sodium 138.7 Potassium 4.8 Chloride 107 Carbon Dioxide 27 Anion Gap 5 BUN 25 H Creatinine 0.69 Est GFR ( Amer) > 60 Glucose 99 Calcium 8.8 Ferritin 1860.00 H Total Bilirubin 0.8 AST 104 H Alkaline Phosphatase 101 C-Reactive Protein 39.6 H Total Protein 6.3 Albumin 2.9 L Urine Color YELLOW Urine Appearance CLEAR Urine pH 6.0 Ur Specific [place] 1.026 Urine Protein NEGATIVE Urine Glucose (UA) NEGATIVE Urine Ketones NEGATIVE Urine Blood NEGATIVE Urine Nitrite NEGATIVE Ur Leukocyte Esterase NEGATIVE Urine WBC (Auto) 1 Urine RBC (Auto) 0 01/30/20 01/30/20 01/30/20 12:59 15:43 21:35 Creatine Kinase 1484 H Troponin I 0.070 0.046 Impressions: Chest X-Ray 01/30/20 10:39 IMPRESSION: Diffuse patchy bilateral alveolar and interstitial infiltrates Chest/Abdomen CTA 01/30/20 14:39 IMPRESSION: Diffuse ground-glass opacities throughout the lungs consistent with the diagnosis of covid 19. No pulmonary emboli. Marked fatty infiltration of the liver. Assessment and Plan - Diagnosis (1) Acute respiratory failure with hypoxia Is this a current diagnosis for this admission?: Yes Plan: Continues to improve. Currently on Oxymizer 6 L with O2 sat 90%. - Presented with moderate respiratory distress due to COVID-19 infection. - CTA chest 01/29 positive for diffuse groundglass opacity throughout the lungs consistent with diagnosis of COVID-19 infection. - Marked elevation inflammatory markers on initial presentation with progressive decrease with treatment thus far. Therapy thus far includes: - Completed 5 days Azithromycin in full, last dose today. - 4 total days IV remdesivir, since discontinued. - 7 days IV steroids, continue IV steroid until discharge. - Status post convalescent plasma transfusion. - Continue DuoNeb, BiPAP, flutter valve, incentive spirometry. (2) Acute kidney injury Is this a current diagnosis for this admission?: Yes Plan: Resolved. - Continues to be euvolemic. - Creatinine 0.69. BUN 25. - Prerenal. Most likely due to low p.o. intake caused by nausea vomiting due to COVID-19 infection. - Continue cautious volume restriction guided by volume status. No indication for volume resuscitation at this time - Monitor electrolytes and volume status. - Replace electrolytes as needed. - Avoid nephrotoxic meds. (3) Hypertension Qualifiers: Hypertension type: essential hypertension Qualified Code(s): I10 - Essential (primary) hypertension Is this a current diagnosis for this admission?: Yes Plan: BP 120/70s on home medications - Currently blood pressure is in acceptable range - Will continue home medications (4) Hyponatremia Is this a current diagnosis for this admission?: Yes Plan: Remains Resolved. - Most likely due to COVID-19 infection. - Presented with serum sodium was 127 on presentation - Serum osmolarity 278, urine osmolality 928, urine sodium less than 5. - Monitor volume status and electrolytes, replace as needed. - BMP follow up. (5) Obesity (BMI 30-39.9) Is this a current diagnosis for this admission?: Yes Plan: BMI 36.2. Encourage lifestyle modification including dietary change and regular exercise to attain optimal weight (6) Pneumonia due to COVID-19 virus Is this a current diagnosis for this admission?: Yes Plan: Covid positive as of 01/29/2020, test completed in outpatient setting. Treatment as above. (7) Hyperkalemia Is this a current diagnosis for this admission?: Yes Plan: Resolved. Potassium 4.7 today - Treated with lactulose, miralax and kayexalate. - Cnt bowel regimen - Cnt to monitor. - Plan Summary Summary: Overall significant gradual improvement in patient's O2 demand. Continue to wean him off of his oxygen as he can tolerate. Once at 2 L nasal cannula may investigate home O2 that monitor how this would work [place]. - Time Time Spent with patient: 15-24 minutes Anticipated Discharge Disposition: Home, Self Care Anticipated Discharge Timeframe: NA
[2020-02-08 06:12] LABS: ABSOLUTE EOSINOPHILS # (AUTO) 0.1 10^3/uL (0.0-0.6); ABSOLUTE LYMPHOCYTES (AUTO) 1.4 10^3/uL (0.5-4.7); ABSOLUTE MONOCYTES (AUTO) 0.6 10^3/uL (0.1-1.4); ABSOLUTE NEUT (AUTO) 6.4 10^3/uL (1.7-8.2); BASOPHILS % (AUTO) 0.5 % (0-2); EOSINOPHILS % (AUTO) 1.2 % (0-6); HEMATOCRIT 43.4 % (37.9-51.0); HEMOGLOBIN 14.7 g/dL (13.5-17.0); LYMPHOCYTES % (AUTO) 16.7 % (13-45); MEAN CORPUSCULAR HEMOGLOBIN 28.4 pg (27.0-33.4); MEAN CORPUSCULAR HGB CONC 33.9 g/dL (32.0-36.0); MEAN CORPUSCULAR VOLUME 84 fl (80-97); MONOCYTES % (AUTO) 6.5 % (3-13); PLATELET COUNT 288 10^3/uL (150-450); RED BLOOD COUNT 5.18 10^6/uL (4.35-5.55); RED CELL DISTRIBUTION WIDTH 14.1 % (11.5-14.0); SEGMENTED NEUTROPHILS % (AUTO) 75.1 % (42-78); TOTAL CELLS COUNTED % (AUTO) 100 %; WHITE BLOOD COUNT 8.6 10^3/uL (4.0-10.5)
[2020-02-08 06:40] LABS: ALKALINE PHOSPHATASE 96 U/L (38-126); ANION GAP 8 (5-19); ASPARTATE AMINO TRANSFERASE 88 U/L (17-59); BILIRUBIN,DIRECT 0.3 mg/dL (0.0-0.4); BILIRUBIN,TOTAL 0.9 mg/dL (0.2-1.3); BLOOD UREA NITROGEN 24 mg/dL (7-20); C-REACTIVE PROTEIN 27.6 mg/L (<10.0); CALCIUM 8.8 mg/dL (8.4-10.2); CARBON DIOXIDE 26 mmol/L (22-30); CHLORIDE 103 mmol/L (98-107); GLUCOSE 87 mg/dL (75-110); POTASSIUM 4.8 mmol/L (3.6-5.0); TOTAL PROTEIN 6.5 g/dL (6.3-8.2)
[2020-02-08] MEDS ORDERED: LACTULOSE SYRUP 20 GM/30 ML UDCUP PO PRN (07:49)
[2020-02-08] MEDS ORDERED: POLYETHYLENE GLYCOL 3350 POWDER 17 GM/1 PACKET PO PRN (07:49)
[2020-02-08] MEDS: IPRATROPIUM/ALBUTEROL 0.5-2.5 MG/3 ML AMPUL NEB SCH ×3 (08:47→20:45)
[2020-02-08] MEDS: CHOLECALCIFEROL (D3) 1,000 UNIT (25 MCG) TABLET PO SCH (09:03)
[2020-02-08] MEDS: GUAIFENESIN 600 MG TABLET.SA PO SCH ×2 (09:04→21:08)
[2020-02-08] MEDS: ENOXAPARIN SODIUM INJ 100 MG/1 ML DISP.SYRIN SUBCUT SCH ×2 (09:04→21:08)
[2020-02-08] MEDS: ZINC SULFATE 220 MG CAPSULE PO SCH (09:04)
[2020-02-08] MEDS: FAMOTIDINE 20 MG TABLET PO SCH ×2 (09:04→21:08)
[2020-02-08] MEDS: ASCORBIC ACID 500 MG TABLET PO SCH ×2 (09:04→17:11)
[2020-02-08] MEDS: ASPIRIN 81 MG TABLET, ENT COATED PO SCH (09:04)
[2020-02-08] MEDS: DEXAMETHASONE SOD PHOSPHATE INJ 4 MG/1 ML VIAL IV SCH (09:04)
[2020-02-08] MEDS: LISINOPRIL 10 MG TABLET PO SCH (09:04)
--- NOTE | 2020-02-08 16:20 | PDOC PROGRESS REPORT ---
Subjective Date:: 02/08/20 Subjective:: Patient resting in bed. His oxygen requirement today is 4 L Oxymizer with O2 saturation low 90s. He tells me that he is comfortable. Not requiring CPAP at night. Having regular bowel movements without bowel regimen. Continues to deny cough, chest pain, shortness of breath, or palpitations. No acute events overnight per nursing. Reason For Visit: ACUTE HYPOXIC RESPIRATORY FAILURE PNEUMONIA DUE TO Physical Exam Vital Signs: Temp Pulse Resp BP Pulse Ox 97.4 F 83 19 118/66 90 L 02/08/20 15:34 02/08/20 15:34 02/08/20 15:34 02/08/20 15:34 02/08/20 15:34 Intake & Output 02/07/20 02/08/20 02/09/20 06:59 06:59 06:59 Intake Total 1566 350 Output Total 1850 1030 Balance -284 -680 Weight 95.5 kg 86 kg Additional comments: General appearance: PRESENT: no acute distress, cooperative, obese Head exam: PRESENT: atraumatic, normocephalic Eye exam: PRESENT: EOMI. ABSENT: scleral icterus Neck exam: PRESENT: full ROM. Respiratory exam: PRESENT: clear to auscultation nohemy. Some residual wheezing in R lung [place], otherwise good airway movement noted. ABSENT: crackles, rales, rhonchi Cardiovascular exam: PRESENT: RRR. ABSENT: diastolic murmur, systolic murmur Pulses: PRESENT: normal radial pulses Extremities exam: PRESENT: full ROM. ABSENT: pedal edema Musculoskeletal exam: PRESENT: ambulatory, full ROM. ABSENT: deformity, dislocation Neurological exam: PRESENT: alert, awake, oriented to person, oriented to place, oriented to time, oriented to situation, CN II-XII grossly intact Psychiatric exam: PRESENT: appropriate affect, normal mood Skin exam: PRESENT: dry, intact, warm Results Laboratory Results: 02/08/20 04:56 02/08/20 04:56 02/08/20 02/08/20 04:56 04:56 WBC 8.6 RBC 5.18 Hgb 14.7 Hct 43.4 MCV 84 MCH 28.4 MCHC 33.9 RDW 14.1 H Plt Count 288 Seg Neutrophils % 75.1 Sodium 137.2 Potassium 4.8 Chloride 103 Carbon Dioxide 26 Anion Gap 8 BUN 24 H Creatinine 0.73 Est GFR ( Amer) > 60 Glucose 87 Calcium 8.8 Ferritin 1740.00 H Total Bilirubin 0.9 AST 88 H Alkaline Phosphatase 96 C-Reactive Protein 27.6 H Total Protein 6.5 Albumin 3.0 L 01/30/20 01/30/20 01/30/20 12:59 15:43 21:35 Creatine Kinase 1484 H Troponin I 0.070 0.046 Impressions: Chest X-Ray 01/30/20 10:39 IMPRESSION: Diffuse patchy bilateral alveolar and interstitial infiltrates Chest/Abdomen CTA 01/30/20 14:39 IMPRESSION: Diffuse ground-glass opacities throughout the lungs consistent with the diagnosis of covid 19. No pulmonary emboli. Marked fatty infiltration of the liver. Assessment and Plan - Diagnosis (1) Acute respiratory failure with hypoxia Is this a current diagnosis for this admission?: Yes Plan: Continues to improve. Currently on Oxymizer 2 L with O2 sat 90%. - Presented with moderate respiratory distress due to COVID-19 infection. - CTA chest 01/29 positive for diffuse groundglass opacity throughout the lungs consistent with diagnosis of COVID-19 infection. - Marked elevation inflammatory markers on initial presentation with progressive decrease with treatment thus far. Therapy thus far includes: - Completed 5 days Azithromycin in full, last dose today. - 4 total days IV remdesivir, since discontinued. - 7 days IV steroids, continue IV steroid until discharge. - Status post convalescent plasma transfusion. - Continue DuoNeb, BiPAP, flutter valve, incentive spirometry. (2) Acute kidney injury Is this a current diagnosis for this admission?: Yes Plan: Resolved. - Continues to be euvolemic. - Creatinine 0.73. BUN 24. - Prerenal. Most likely due to low p.o. intake caused by nausea vomiting due to COVID-19 infection. - Continue cautious volume restriction guided by volume status. No indication for volume resuscitation at this time - Monitor electrolytes and volume status. - Replace electrolytes as needed. - Avoid nephrotoxic meds. (3) Hypertension Qualifiers: Hypertension type: essential hypertension Qualified Code(s): I10 - Essential (primary) hypertension Is this a current diagnosis for this admission?: Yes Plan: BP 120/70s on home medications - Currently blood pressure is in acceptable range - Will continue home medications (4) Hyponatremia Is this a current diagnosis for this admission?: Yes Plan: Remains Resolved. - Most likely due to COVID-19 infection. - Presented with serum sodium was 127 on presentation - Serum osmolarity 278, urine osmolality 928, urine sodium less than 5. - Monitor volume status and electrolytes, replace as needed. - BMP follow up. (5) Obesity (BMI 30-39.9) Is this a current diagnosis for this admission?: Yes Plan: BMI 36.2. Encourage lifestyle modification including dietary change and regular exercise to attain optimal weight (6) Pneumonia due to COVID-19 virus Is this a current diagnosis for this admission?: Yes Plan: Covid positive as of 01/29/2020, test completed in outpatient setting. Treatment as above. (7) Hyperkalemia Is this a current diagnosis for this admission?: Yes Plan: Resolved. Potassium 4.8 today - Treated with lactulose, miralax and kayexalate. - Plan Summary Summary: Overall significant gradual improvement in patient's O2 demand. Continue to wean him off of his oxygen as he can tolerate. Once at 2 L nasal cannula may investigate home O2 that monitor how this would work [place]. - Time Time Spent with patient: Less than 15 minutes Medications reviewed and adjusted accordingly: Yes Anticipated Discharge Disposition: Home, Self Care Anticipated Discharge Timeframe: na
[2020-02-09 06:07] LABS: ABSOLUTE EOSINOPHILS # (AUTO) 0.1 10^3/uL (0.0-0.6); ABSOLUTE LYMPHOCYTES (AUTO) 1.6 10^3/uL (0.5-4.7); ABSOLUTE MONOCYTES (AUTO) 0.7 10^3/uL (0.1-1.4); ABSOLUTE NEUT (AUTO) 6.5 10^3/uL (1.7-8.2); BASOPHILS % (AUTO) 0.5 % (0-2); EOSINOPHILS % (AUTO) 0.8 % (0-6); HEMATOCRIT 44.5 % (37.9-51.0); HEMOGLOBIN 15.1 g/dL (13.5-17.0); LYMPHOCYTES % (AUTO) 18.2 % (13-45); MEAN CORPUSCULAR HEMOGLOBIN 28.5 pg (27.0-33.4); MEAN CORPUSCULAR HGB CONC 33.9 g/dL (32.0-36.0); MEAN CORPUSCULAR VOLUME 84 fl (80-97); MONOCYTES % (AUTO) 7.5 % (3-13); PLATELET COUNT 333 10^3/uL (150-450); RED BLOOD COUNT 5.28 10^6/uL (4.35-5.55); TOTAL CELLS COUNTED % (AUTO) 100 %
[2020-02-09 06:29] LABS: D-DIMER 0.92 ug/mL (0.00-0.50)
[2020-02-09 06:46] LABS: ALBUMIN 3.1 g/dL (3.5-5.0); ALKALINE PHOSPHATASE 98 U/L (38-126); ANION GAP 8 (5-19); ASPARTATE AMINO TRANSFERASE 81 U/L (17-59); BILIRUBIN,DIRECT 0.2 mg/dL (0.0-0.4); BILIRUBIN,TOTAL 0.9 mg/dL (0.2-1.3); BLOOD UREA NITROGEN 25 mg/dL (7-20); C-REACTIVE PROTEIN 13.9 mg/L (<10.0); CARBON DIOXIDE 26 mmol/L (22-30); CHLORIDE 102 mmol/L (98-107); GLUCOSE 94 mg/dL (75-110); POTASSIUM 4.7 mmol/L (3.6-5.0); TOTAL PROTEIN 6.6 g/dL (6.3-8.2)
[2020-02-09] MEDS: ASPIRIN 81 MG TABLET, ENT COATED PO SCH (09:45)
[2020-02-09] MEDS: ASCORBIC ACID 500 MG TABLET PO SCH (09:45)
[2020-02-09] MEDS: ZINC SULFATE 220 MG CAPSULE PO SCH (09:45)
[2020-02-09] MEDS: FAMOTIDINE 20 MG TABLET PO SCH (09:45)
[2020-02-09] MEDS: GUAIFENESIN 600 MG TABLET.SA PO SCH (09:45)
[2020-02-09] MEDS: LISINOPRIL 10 MG TABLET PO SCH (09:45)
[2020-02-09] MEDS: DEXAMETHASONE SOD PHOSPHATE INJ 4 MG/1 ML VIAL IV SCH (09:46)
[2020-02-09] MEDS: CHOLECALCIFEROL (D3) 1,000 UNIT (25 MCG) TABLET PO SCH (09:46)
[2020-02-09] MEDS: ENOXAPARIN SODIUM INJ 100 MG/1 ML DISP.SYRIN SUBCUT SCH (09:46)
[2020-02-09] MEDS: IPRATROPIUM/ALBUTEROL 0.5-2.5 MG/3 ML AMPUL NEB SCH ×2 (10:04→13:10)
[2020-02-09 14:32] VITALS: BP 118/86
--- NOTE | 2020-02-10 06:56 | PDOC DISCHARGE SUMMARY ---
Impression - Admit/DC Date/PCP Admission Date/Primary Care Provider: 01/30/20 20:28 Discharge Date: 02/09/20 - Discharge Diagnosis (1) Acute respiratory failure with hypoxia Is this a current diagnosis for this admission?: Yes (2) Acute kidney injury Is this a current diagnosis for this admission?: Yes (3) Hypertension Is this a current diagnosis for this admission?: Yes (4) Hyponatremia Is this a current diagnosis for this admission?: Yes (5) Obesity (BMI 30-39.9) Is this a current diagnosis for this admission?: Yes (6) Pneumonia due to COVID-19 virus Is this a current diagnosis for this admission?: Yes (7) Hyperkalemia Is this a current diagnosis for this admission?: Yes - Assessment Summary: Overall significant gradual improvement in patient's O2 demand. Continue to wean him off of his oxygen as he can tolerate. Once at 2 L nasal cannula may investigate home O2 that monitor how this would [place] - Additional Information Resuscitation Status: Full Code Discharge Diet: As Tolerated Discharge Activity: Slowly Increase Activity Home Medications: Amlodipine Besylate [Norvasc 5 mg Tablet] 5 mg PO DAILY 01/31/20 Hydrochlorothiazide 12.5 mg PO DAILY 01/31/20 Quinapril HCl 40 mg PO DAILY 01/31/20 History of Present Illiness History of Present Illness: As per admitting provider on 01/30/2020: "KISHOR LEPE is a 65 year old male with a medical history significant for hypertension and class II obesity who tested positive for COVID-19 one day ago now presents to the ED with acute onset shortness of breath which started this morning. Patient states that he started having fever, chills, generalized body aches and a dry cough about 5 days back and relatively he was doing well until this morning where his shortness of breath got really worse. During transfer via EMS he was oxygen saturation was reportedly in the 60s. Immediately after arrival to the emergency department patient was placed on CPAP. During earlier evaluation by hospitalist team patient was desaturating when he was switched to a nonrebreather and he was placed back on CPAP. ABG showed pH/PCO2/PO2 of 7.4 32/ on 100% FiO2. During my evaluation patient was l on CPAP at a setting of 100% FiO2, PEEP of 12, respiratory rate was 24/min, saturating 95%. Denies any chest pain, palpitation, nausea, vomiting, diarrhea or dizziness." Hospital Course Hospital Course: Acute respiratory failure with hypoxia Continues to improve. Currently on Oxymizer 2 L with O2 sat 90%. - Presented with moderate respiratory distress due to COVID-19 infection. - Initially required supplemental O2 via BiPAP -> Oxymizer -> Nasal cannula - CTA chest 01/29 positive for diffuse groundglass opacity throughout the lungs consistent with diagnosis of COVID-19 infection. - Marked elevation inflammatory markers on initial presentation with progressive decrease with treatment thus far. - Home O2 has been organized. Therapy includes: - Completed 5 days Azithromycin in full, last dose today. - 4 total days IV remdesivir, since discontinued. - 7 days IV steroids, continue IV steroid until discharge. - Status post convalescent plasma transfusion. - Continue DuoNeb, BiPAP, flutter valve, incentive spirometry. Acute kidney injury Resolved. - Continues to be euvolemic. - Creatinine 0.73. BUN 24. - Prerenal. Most likely due to low p.o. intake caused by nausea vomiting due to COVID-19 infection. - Continue cautious volume restriction guided by volume status. No indication for volume resuscitation at this time - Monitor electrolytes and volume status. - Replace electrolytes as needed. - Avoid nephrotoxic meds. Pneumonia due to COVID-19 virus Covid positive as of 01/29/2020, test completed in outpatient setting. Last day of quarantine 02/08/2020. Physical Exam Vital Signs: Temp Pulse Resp BP Pulse Ox 98.0 F 93 16 118/86 H 93 02/09/20 14:30 02/09/20 14:30 02/09/20 14:30 02/09/20 14:30 02/09/20 14:30 Intake & Output 02/08/20 02/09/20 02/10/20 06:59 06:59 06:59 Intake Total 350 260 Output Total 1030 1125 Balance -680 -865 Weight 86 kg 86 kg Additional comments: General appearance: PRESENT: no acute distress, cooperative, obese Head exam: PRESENT: atraumatic, normocephalic Eye exam: PRESENT: EOMI. ABSENT: scleral icterus Neck exam: PRESENT: full ROM. Respiratory exam: PRESENT: clear to auscultation nohemy. Some residual wheezing in R lung perry, otherwise good airway movement noted. ABSENT: crackles, rales, rhonchi Cardiovascular exam: PRESENT: RRR. ABSENT: diastolic murmur, systolic murmur Pulses: PRESENT: normal radial pulses Extremities exam: PRESENT: full ROM. ABSENT: pedal edema Musculoskeletal exam: PRESENT: ambulatory, full ROM. ABSENT: deformity, dislocation Neurological exam: PRESENT: alert, awake, oriented to person, oriented to place, oriented to time, oriented to situation, CN II-XII grossly intact Psychiatric exam: PRESENT: appropriate affect, normal mood Skin exam: PRESENT: dry, intact, warm Results Laboratory Results: WBC 9.0 10^3/uL (4.0-10.5) 02/09/20 05:27 RBC 5.28 10^6/uL (4.35-5.55) 02/09/20 05:27 Hgb 15.1 g/dL (13.5-17.0) 02/09/20 05:27 Hct 44.5 % (37.9-51.0) 02/09/20 05:27 MCV 84 fl (80-97) 02/09/20 05:27 MCH 28.5 pg (27.0-33.4) 02/09/20 05:27 MCHC 33.9 g/dL (32.0-36.0) 02/09/20 05:27 RDW 14.0 % (11.5-14.0) 02/09/20 05:27 Plt Count 333 10^3/uL (150-450) 02/09/20 05:27 Lymph % (Auto) 18.2 % (13-45) 02/09/20 05:27 [place] % (Auto) 7.5 % (3-13) 02/09/20 05:27 Eos % (Auto) 0.8 % (0-6) 02/09/20 05:27 Baso % (Auto) 0.5 % (0-2) 02/09/20 05:27 Absolute Neuts (auto) 6.5 10^3/uL (1.7-8.2) 02/09/20 05:27 Absolute Lymphs (auto) 1.6 10^3/uL (0.5-4.7) 02/09/20 05:27 Absolute Monos (auto) 0.7 10^3/uL (0.1-1.4) 02/09/20 05:27 Absolute Eos (auto) 0.1 10^3/uL (0.0-0.6) 02/09/20 05:27 Absolute Basos (auto) 0.0 10^3/uL (0.0-0.2) 02/09/20 05:27 Total Counted 100 02/07/20 04:45 Seg Neutrophils % 73.0 % (42-78) 02/09/20 05:27 Seg Neuts % (Manual) 74 % (42-78) 02/07/20 04:45 Band Neutrophils % 3 % (3-5) 01/30/20 12:59 Lymphocytes % (Manual) 16 % (13-45) 02/07/20 04:45 Atypical Lymphs % 1 % (0) 01/30/20 12:59 Monocytes % (Manual) 7 % (3-13) 02/07/20 04:45 Eosinophils % (Manual) 3 % (0-6) 02/07/20 04:45 Basophils % (Manual) 0 % (0-2) 02/07/20 04:45 Abs Neuts (Manual) 6.6 10^3/uL (1.7-8.2) 02/07/20 04:45 Abs Lymphs (Manual) 1.4 10^3/uL (0.5-4.7) 02/07/20 04:45 Abs Monocytes (Manual) 0.6 10^3/uL (0.1-1.4) 02/07/20 04:45 Absolute Eos (Manual) 0.3 10^3/uL (0.0-0.6) 02/07/20 04:45 Abs Basophils (Manual) 0.0 10^3/uL (0.0-0.2) 02/07/20 04:45 Toxic Vacuolation PRESENT 01/30/20 12:59 Platelet Estimate Cancelled 02/05/20 05:07 Large Platelets PRESENT 01/30/20 12:59 Platelet Comment ADEQUATE 02/07/20 04:45 Polychromasia SLIGHT 01/30/20 12:59 Anisocytosis SLIGHT 01/30/20 12:59 RBC Morph Comment NORMO-CYTIC/CHROMIC 02/07/20 04:45 PT 14.1 SEC (11.4-15.4) 02/05/20 05:07 INR 1.07 02/05/20 05:07 Fibrinogen 523 mg/dL (209-497) H 02/09/20 05:27 D-Dimer 0.92 ug/mL (0.00-0.50) H 02/09/20 05:27 Carbonic Acid 0.98 mmol/L (1.05-1.35) L 01/30/20 13:15 HCO3/H2CO3 Ratio 24:1 01/30/20 13:15 ABG pH 7.49 (7.35-7.45) H 01/30/20 13:15 ABG pCO2 32.7 mmHg (35-45) L 01/30/20 13:15 ABG pO2 77.1 mmHg (80-100) L 01/30/20 13:15 ABG HCO3 24.2 mmol/L (20-24) H 01/30/20 13:15 ABG Total CO2 25.3 mmol/L (23-27) 01/30/20 13:15 ABG O2 Saturation 96.4 % (94-98) 01/30/20 13:15 ABG Base Excess 1.7 mmol/L 01/30/20 13:15 FiO2 100% 01/30/20 13:15 Sodium 135.5 mmol/L (137-145) L 02/09/20 05:27 Potassium 4.7 mmol/L (3.6-5.0) 02/09/20 05:27 Chloride 102 mmol/L (98-107) 02/09/20 05:27 Carbon Dioxide 26 mmol/L (22-30) 02/09/20 05:27 Anion Gap 8 (5-19) 02/09/20 05:27 BUN 25 mg/dL (7-20) H 02/09/20 05:27 Creatinine 0.77 mg/dL (0.52-1.25) 02/09/20 05:27 Est GFR ( Amer) > 60 (>60) 02/09/20 05:27 Est GFR (MDRD) Non-Af > 60 (>60) 02/09/20 05:27 Glucose 94 mg/dL (75-110) 02/09/20 05:27 Serum Osmolality 278 mOsm/kg (275-301) 01/30/20 12:59 Calcium 9.0 mg/dL (8.4-10.2) 02/09/20 05:27 Magnesium 2.9 mg/dL (1.6-2.3) H 02/02/20 05:20 Ferritin 1790.00 ng/mL (17.9-464.0) H 02/09/20 05:27 Total Bilirubin 0.9 mg/dL (0.2-1.3) 02/09/20 05:27 Direct Bilirubin 0.2 mg/dL (0.0-0.4) 02/09/20 05:27 Neonat Total Bilirubin Not Reportable 02/09/20 05:27 Neonat Direct Bilirubin Not Reportable 02/09/20 05:27 Neonat Indirect Bili Not Reportable 02/09/20 05:27 AST 81 U/L (17-59) H 02/09/20 05:27 ALT 167 U/L (<50) H 02/09/20 05:27 Alkaline Phosphatase 98 U/L (38-126) 02/09/20 05:27 Lactate Dehydrogenase 936 U/L (120-246) H 01/30/20 21:35 Creatine Kinase 1484 U/L (55-170) H 01/30/20 21:35 Troponin I 0.046 ng/mL 01/30/20 15:43 C-Reactive Protein 13.9 mg/L (<10.0) H 02/09/20 05:27 Total Protein 6.6 g/dL (6.3-8.2) 02/09/20 05:27 Albumin 3.1 g/dL (3.5-5.0) L 02/09/20 05:27 Urine Color YELLOW 02/07/20 08:45 Urine Appearance CLEAR 02/07/20 08:45 Urine pH 6.0 (5.0-9.0) 02/07/20 08:45 Ur Specific [place] 1.026 02/07/20 08:45 Urine Protein NEGATIVE mg/dL (NEGATIVE) 02/07/20 08:45 Urine Glucose (UA) NEGATIVE mg/dL (NEGATIVE) 02/07/20 08:45 Urine Ketones NEGATIVE mg/dL (NEGATIVE) 02/07/20 08:45 Urine Blood NEGATIVE (NEGATIVE) 02/07/20 08:45 Urine Nitrite NEGATIVE (NEGATIVE) 02/07/20 08:45 Urine Bilirubin NEGATIVE (NEGATIVE) 02/07/20 08:45 Urine Urobilinogen NEGATIVE mg/dL (<2.0) 02/07/20 08:45 Ur Leukocyte Esterase NEGATIVE (NEGATIVE) 02/07/20 08:45 Urine WBC (Auto) 1 /HPF 02/07/20 08:45 Urine RBC (Auto) 0 /HPF 02/07/20 08:45 Urine Bacteria (Auto) TRACE /HPF 02/05/20 16:17 Squamous Epi Cells Auto <1 /HPF 02/03/20 11:37 Urine Mucus (Auto) OCC /LPF 02/07/20 08:45 Urine Osmolality 928 mOsm/kg (300-900) H 01/30/20 22:47 Urine Creatinine 161.9 mg/dL (22-328) 01/30/20 22:47 Urine Sodium < 5 mmol/L (30-90) L 01/30/20 22:47 Urine Ascorbic Acid 40 (NEGATIVE) H 02/07/20 08:45 Hepatitis A IgM Ab Negative (Negative) 02/06/20 04:40 Hep Bs Antigen Negative (Negative) 02/06/20 04:40 Hep B Core IgM Ab Negative (Negative) 02/06/20 04:40 Hepatitis C Antibody <0.1 s/co ratio (0.0-0.9) 02/06/20 04:40 Slides for Path Review Cancelled 02/05/20 05:07 Blood Type A POSITIVE 01/30/20 21:35 Antibody Screen NEGATIVE 01/30/20 21:35 01/30/20 01/30/20 12:59 15:43 Troponin I 0.070 0.046 Impressions: Chest X-Ray 01/30/20 10:39 IMPRESSION: Diffuse patchy bilateral alveolar and interstitial infiltrates Chest/Abdomen CTA 01/30/20 14:39 IMPRESSION: Diffuse ground-glass opacities throughout the lungs consistent with the diagnosis of covid 19. No pulmonary emboli. Marked fatty infiltration of the liver. Plan Plan of Treatment: 1. Pneumonia due to COVID-19 virus: You tested positive for Covid on 01/29/2020. - For this you received: antibiotics, steroids, and breathing treatments. - Continue with flutter valve and incentive spirometry daily. - You are currently asymptomatic outside of requiring oxygen. - As of 02/08/2020 you have completed your 10 days of quarantine. 2. You are now requiring oxygen at home, this has been arranged for you. - Wear your oxygen daily. - Monitor oxygen saturation. Your goal is to be >88%. - Please follow up with your primary care provider for further oxygen management. You may continue to experience fatigue that is to be expected. If you experience a significant increase in your oxygen demand (i.e. you usually need 2L at rest and start needing 5L at rest) please seek medical attention. Time Spent: Greater than 30 Minutes Stroke Is this a Stroke Patient?: No Acute Heart Failure Is this a Heart Failure Patient?: No
== END 2020-02-09 16:00 | disposition home or self-care (01) | DRG 177 ==
LOC: ER 10:19 → EH 20:28 → 3W 01-31 14:44
PROVIDERS: ADMIT Student in an Organized Health Care Education/Training Program; ATTEND Physician Assistant
PROC: 5A09557 Assistance with Respiratory Ventilation, Greater than 96 Consecutive Hours, Continuous Positive Airway Pressure (ICD-10-PCS; 2020-01-30)
PROC: XW033E5 Introduction of Remdesivir Anti-infective into Peripheral Vein, Percutaneous Approach, New Technology Group 5 (ICD-10-PCS; principal; 2020-01-31)
PROC: XW13325 Transfusion of Convalescent Plasma (Nonautologous) into Peripheral Vein, Percutaneous Approach, New Technology Group 5 (ICD-10-PCS; 2020-01-31)
DX: U07.1 COVID-19 (principal); J12.89 Other viral pneumonia; J96.01 Acute respiratory failure with hypoxia; N17.9 Acute kidney failure, unspecified; E87.1 Hypo-osmolality and hyponatremia; E66.9 Obesity, unspecified; I10 Essential (primary) hypertension; R79.1 Abnormal coagulation profile; E87.5 Hyperkalemia; Z87.891 Personal history of nicotine dependence; Z68.36 Body mass index [BMI] 36.0-36.9, adult; Z79.899 Other long term (current) drug therapy
CPT/HCPCS: 36415; 36430; 36600; 71045; 71275; 80053; 80074; 81001; 82550; 82570; 82728; 82803; 83615; 83735; 83930; 83935; 84132; 84300; 84484; 85025; 85027; 85379; 85384; 85610; 86140; 86850; 86900; 86901; 87040; 93005; 93010; 94660; 94667; 94668; 94799; 96361; 96374; 99285; J1100; J1650; J3490; J7040; J7050; J7120